=== PATIENT | female | born 1955 | race Caucasian/White ===

== ENCOUNTER 2023-05-04 06:23 | Inpatient (IN) | payer MEDICARE, OTHER, SELFPAY ==
--- NOTE | 2023-03-25 11:36 | CM ---
Patient is scheduled for an elective R THR on 05/04/23. Spoke with patient prior to surgery via telephone. Introduced role of Orthopedic Navigator. Patient reports that she lives alone in a one story condo. There is one step to enter. She currently
functions independently. She has a cane. She has had VN services in the past. PCP is Salma Linton.
Discussed orthopedic program and post surgical plans. Reviewed anticipated length of stay and that goal is for her to return home at discharge. Also reviewed outpatient PT. Patient is in agreement with tentative plan and will go directly to
outpatient PT at [facility]. Her son will stay with her at night and people will be stopping in during the day.
Patient will complete online education.
Plan: Orthopedic Navigator will remain available to assist with the care of patient and will reassess discharge needs after surgery.
[2023-04-13 13:37] VITALS: BMI 33.8
[2023-04-13 14:19] LABS: Hematocrit 39.2 % (37.0-47.0); Hemoglobin 12.8 g/dL (12.0-16.0); Mean Corp Hgb Conc. 32.7 g/dL (33.0-37.0); Mean Corpuscular Volume 91.8 fL (81.0-99.0); Mean Platelet Volume 10.3 fL (7.4-10.4); Platelet Count 227 10^3/uL (130-400); Red Blood Cell Count 4.27 10^6/uL (4.20-5.40); Red Cell Dist. Width 12.3 % (11.5-14.5); White Blood Cell Count 7.9 10^3/uL (4.8-10.8)
[2023-04-13 14:31] LABS: ALT (SGPT) 22 U/L (0-35); AST (SGOT) 26 U/L (14-36); Alkaline Phosphatase 85 U/L (38-126); Blood Urea Nitrogen 15 mg/dl (7-17); Calcium 9.4 mg/dl (8.4-10.2); Carbon Dioxide 28 mmol/L (22-30); Chloride 105 mmol/L (98-107); Estimated Creatinine Clearance 85 ml/min; Glucose 92 mg/dl (70-99); Sodium 138 mmol/L (135-145); Total Bilirubin 0.7 mg/dl (0.2-1.3); Total Protein 7.4 g/dl (6.3-8.2); eGFR > 60.00
[2023-04-13 15:51] VITALS: BMI 33.8
[2023-04-14 10:00] LABS: Glycohemoglobin (HgbA1c) 5.1 % (4.0-5.6)
[2023-05-04] VITALS (18 sets, daily range): BP systolic 91–137; BP diastolic 41–67; PULSE 67–74; O2SAT 99; BMI 33.8
[2023-05-04] MEDS: CELEBREX 200 MG PO (07:08)
[2023-05-04] MEDS: NORMOSOL-R 1000 IV ×2 (07:09→11:40)
[2023-05-04] MEDS: TYLENOL 650 MG PO ×5 (07:09→23:49)
[2023-05-04] MEDS: BACTROBAN NASAL 1 GRAM NASAL (07:11)
[2023-05-04] MEDS: SUBLIMAZE 50 MCG IV (10:25)
[2023-05-04] MEDS: ROXICODONE 5 MG PO (10:33)
[2023-05-04] MEDS: SUBLIMAZE 25 MCG IV ×2 (10:38→10:54)
[2023-05-04] MEDS: NEURONTIN 300 MG PO ×3 (11:35→20:15)
--- NOTE | 2023-05-04 12:13 | PTCARENOTE ---
Patient received from PACU stretcher; Surgical site assessed; IVF infusing; Patient oriented to room, call avery use; Bed in lowest position, wheels locked, call avery within reach; Safety maintained
[2023-05-04] MEDS: ANCEF 5 IV ×2 (15:27→23:53)
--- NOTE | 2023-05-04 18:43 | PTCARENOTE ---
Called to room by PCT who had gotten patient up to commode, as patient was on the commode they became dizzy and lightheaded; PCT able to get patient into bed safely; Patient found to be hypotensive, pale, dizzy, and lightheaded; Dr. Mcfadden and
Cassie Gregg PA-C made aware
[2023-05-04] MEDS: NORMOSOL-R 500 IV (19:09)
[2023-05-04] MEDS: ProAmatine 5 MG PO (19:12)
[2023-05-04] MEDS: DECADRON 4 MG PO (20:05)
[2023-05-04] MEDS: SENOKOT 17.1999999999999993 MG PO (20:05)
[2023-05-04] MEDS: ELIQUIS 2.5 MG PO (20:05)
[2023-05-04] MEDS: BACTROBAN 2% OINTMENT 1 APPLIC NASAL (20:05)
[2023-05-04] MEDS: COLACE 100 MG PO (20:05)
[2023-05-04] MEDS: PRED FORTE 1% EYE DROPS 1 DROP RIGHT EYE (20:06)
[2023-05-04] MEDS: XALATAN OPHTHALMIC SOLUTION 1 DROP RIGHT EYE (20:06)
[2023-05-05] VITALS (8 sets, daily range): BP systolic 84–137; BP diastolic 43–69; PULSE 70–86; O2SAT 98
[2023-05-05] MEDS: TYLENOL 650 MG PO ×4 (04:00→20:29)
[2023-05-05] MEDS: ProAmatine 5 MG PO (07:48)
[2023-05-05] MEDS: SENOKOT 17.1999999999999993 MG PO ×2 (07:49→20:32)
[2023-05-05] MEDS: COLACE 100 MG PO ×2 (07:49→20:31)
[2023-05-05] MEDS: DECADRON 4 MG PO ×2 (07:50→20:29)
[2023-05-05] MEDS: ELIQUIS 2.5 MG PO (07:50)
[2023-05-05] MEDS: BACTROBAN 2% OINTMENT 2 APPLIC NASAL (07:51)
--- NOTE | 2023-05-05 08:45 | CM ---
Reviewed chart and held rounds with PT, OT and nursing. Patient admitted as planned for elective R THR. Met with patient at bedside. Confirmed information previously obtained for assessment. Also discussed discharge plans. The plan is for patient to
return home at discharge. Her son will stay with her at night and friends will be available during the day. Patient will go directly to outpatient PT and will go to [facility]. She has an appointment scheduled for Thursday, 05/06.
Patient has a rolling walker, commode, shower seat, hip kit, firm cushion and cane.
She will use [facility] pharmacy for discharge prescriptions.
Discharge plans were reviewed with patient's friend on 05/04/23.
--- NOTE | 2023-05-05 10:19 | W.PN.ORTHO ---
Today's Communication / Plan
-
d/c
Assessment
.
Distal Motor Intact: Yes
Dressing:
Clean, dry and intact.
Assessment:
Orthostasis last pm-resolved s/p IVF and Midodrine
Hx PE b/l unprovoked 2020--Eliquis DVT ppx + SCD
Plan
.
Surgery / Date: O/A s/p R BANDAR Dr. Mcfadden 05/04/23
DVT Prophylaxis: Other (Eliquis-Rx provided by hematology +SCD)
Activity:
Out of bed.
PT/OT
Discharge Plan: Home w/ Outpatient PT
Subjective
.
.:
Patient resting comfortably.
Vital Signs and Labs
.
Vital Signs and Labs:
Lab Results
04/13/23 13:26
04/13/23 13:26
Temp Pulse Resp BP Pulse Ox
97.5 F 70 16 118/51 97
05/05/23 07:31 05/05/23 07:31 05/05/23 07:31 05/05/23 07:31 05/05/23 07:31
Physical Exam
-
HEENT: No pallor, cyanosis, or jaundice. Throat clear.
NECK: Supple. No JVD.
RESPIRATORY: Lungs clear to auscultation.
CVS: S1, S2 normal. RRR.� No murmur, rub or gallop.
ABDOMEN: Soft, non-tender. No distension. BS+/normal.
EXTREMITIES: strength equal, no calf pain with palpation
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 No focal deficits. roll scale worker grossly intact
--- NOTE | 2023-05-05 10:26 | W.DS.TRANS ---
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
-
Discharge Instructions:
Sleep Apnea Risk Low
Discharge Diagnosis/Procedures R BANDAR Dr. Mcfadden 05/04/23
Diet As tolerated
Activity With Walker
Additional Activity use venous compression device when sitting or
sleeping
Driving Restrictions No driving
Bathing Restrictions OK to Shower
Other Services PT
Stop these medications: NSAIDs while on Eliquis
Instructions:
Stand-Alone Forms: Total Hip/Knee Replacement D/C
Changes to Home Medications: Yes
Discharge Medications:
DC Medications w/original date entered in [employer]
latanoprost 0.005 % eye drops 1 drp RIGHT EYE HS Eye condition 03/25/21
prednisolone acetate 1 % eye drops,suspension 1 drp RIGHT EYE QID PRN Eye condition 03/25/21
albuterol sulfate 90 mcg/actuation aerosol inhaler (Proventil HFA) 1 puff inhalation Q4HPRN PRN shortness of breath ##1 04/06/21
mupirocin 2 % topical ointment 1 applic topical BID infection prevention #1 tube 04/13/23
acetaminophen 500 mg tablet 1,000 mg PO QID #0 tabs 05/05/23
apixaban 2.5 mg tablet (Eliquis) 2.5 mg PO BID DVT Prophylaxis #1 tab 05/05/23
dexamethasone 4 mg tablet 4 mg PO BID inflammation #6 tabs 05/05/23
docusate sodium 100 mg capsule (Colace) 100 mg PO BID stool softner #1 cap 05/05/23
famotidine 20 mg tablet 20 mg PO HS GI prophylaxis #30 tabs 05/05/23
gabapentin 300 mg capsule 300 mg PO HS sleep/pain #10 caps 05/05/23
magnesium hydroxide 400 mg/5 mL oral suspension (Milk of Magnesia) 30 ml PO HS PRN Constipation #1 mL 05/05/23
oxycodone 5 mg tablet 5 - 10 mg PO Q6HPRN PRN 1 tab moderate-2 tabs severe pain #30 tabs 05/05/23
sennosides 8.6 mg tablet (Senokot) 17.2 mg PO BID laxative #2 tabs 05/05/23
Home Medication Changes
apixaban 2.5 mg tablet (Eliquis) 2.5 mg PO BID DVT Prophylaxis #1 tab 05/05/23
dexamethasone 4 mg tablet 4 mg PO BID inflammation #6 tabs 05/05/23
famotidine 20 mg tablet 20 mg PO HS GI prophylaxis #30 tabs 05/05/23
gabapentin 300 mg capsule 300 mg PO HS sleep/pain #10 caps 05/05/23
xycodone 5 mg tablet 5 - 10 mg PO Q6HPRN PRN 1 tab moderate-2 tabs severe pain #30 tabs 05/05/23
Pending Results: No
[2023-05-05] MEDS: TYLENOL PO (13:07)
--- NOTE | 2023-05-05 15:19 | CON.PUL ---
Consultation
Consultation Request
Date/Time Consultation Requested: 05/05/2023 - 143
Date/Time Consultation Performed: 05/05/2023 - 150
Requesting Provider: Cassie Gregg PA-C
Performing Provider: Dr. Julian
Reason for Consultation: Acute PE
Medical History
-
Chief Complaint: Elective right total hip arthroplasty
History of Present Illness:
68-year-old female former tobacco smoker with a past medical history of PE (March 2021) on prophylactic Eliquis, anemia, glaucoma and former tobacco use disorder who presents with elective right total hip arthroplasty. Patient has been having
worsening right hip pain and she underwent right total hip arthroplasty by Dr. Mcfadden on 05/04/2023 with a EBL 50 mL and no immediate complications. She has been managed on the floor postoperatively. The patient was exhibiting recurrent
orthostasis with lightheadedness upon standing, and a CTA chest was ordered showing bilateral lower lobe pulmonary embolism with RV strain. Pulmonary now consulted for additional management/recommendations.
Of note, patient was seen by hematology as an outpatient and patient was cleared for her surgery yesterday and her Eliquis was being managed by them as well.
I spoke with the daughter and answered all her questions. 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
PMHx: Osteoarthritis, obesity, history of PE (March 2021) with resolution of PE since on CTA chest in apr 2021; anemia, glaucoma, former tobacco use disorder, GERD
PSHx: Cholecystectomy, appendectomy, cataract surgery, left total hip arthroplasty, right total knee arthroplasty ([facility]), right total knee arthroplasty revision ([facility])
Past Medical History
Past Medical History: Other (Above as per HPI)
Past Surgical History: Other (Above as per HPI)
Social History
Tobacco: Former Smoker
Alcohol: Occasional
Drug: None
Family History
Family History: Other (Son: DVT)
Allergies / Home Medications
Allergies
Allergy/AdvReac Type Severity Reaction Status Date / Time
No Known Allergies Allergy Verified 05/04/23 06:46
Home Medications
Medication Instructions Recorded Confirmed Last Taken Type
latanoprost 0.005 % eye drops 1 drp RIGHT EYE HS Eye condition 03/25/21 05/04/23 05/03/23 21:00 History
prednisolone acetate 1 % eye 1 drp RIGHT EYE QID PRN Eye 03/25/21 05/04/23 Unknown History
drops,suspension condition
albuterol sulfate 90 mcg/actuation 1 puff inhalation Q4HPRN PRN 04/06/21 05/04/23 Unknown Rx
aerosol inhaler (Proventil HFA) shortness of breath ##1
mupirocin 2 % topical ointment 1 applic topical BID infection 04/13/23 Unknown Rx
prevention #1 tube
acetaminophen 500 mg tablet 1,000 mg PO QID #0 tabs 05/05/23 05/04/23 05/02/23 Rx
apixaban 2.5 mg tablet (Eliquis) 2.5 mg PO BID DVT Prophylaxis #1 05/05/23 Unknown Rx
tab
dexamethasone 4 mg tablet 4 mg PO BID inflammation #6 tabs 05/05/23 Unknown Rx
docusate sodium 100 mg capsule 100 mg PO BID stool softner #1 cap 05/05/23 Unknown Rx
(Colace)
famotidine 20 mg tablet 20 mg PO HS GI prophylaxis #30 tabs 05/05/23 Unknown Rx
gabapentin 300 mg capsule 300 mg PO HS sleep/pain #10 caps 05/05/23 Unknown Rx
magnesium hydroxide 400 mg/5 mL 30 ml PO HS PRN Constipation #1 mL 05/05/23 Unknown Rx
oral suspension (Milk of Magnesia)
oxycodone 5 mg tablet 5 - 10 mg PO Q6HPRN PRN 1 tab 05/05/23 Unknown Rx
moderate-2 tabs severe pain #30
tabs
sennosides 8.6 mg tablet (Senokot) 17.2 mg PO BID laxative #2 tabs 05/05/23 Unknown Rx
Review of Systems
-
History Source: Patient
All other systems: Negative unless noted (12 point ROS performed and is negative unless mentioned above.)
Vitals / Labs / Diagnostic Testing
Vital Signs
Temp Pulse Resp BP Pulse Ox
98.4 F 85 18 129/67 97
05/05/23 11:58 05/05/23 14:18 05/05/23 14:18 05/05/23 14:18 05/05/23 14:18
Lab Data
04/13/23 13:26
04/13/23 13:26
Diagnostic Testing:
Physical Exam
-
HEENT: Normocephalic and Anicteric
Cardiovascular: S1/S2 and Peripheral Edema (n)
Respiratory: Clear, Wheeze (n) and Rales (n)
GI: Soft, Non Distended and Non Tender
Neurology: Awake and Alert
General: Comfortable
Assessment
-
Assessment: 68-year-old female former tobacco smoker with a past medical history of PE (March 2021) on prophylactic Eliquis, anemia, glaucoma and former tobacco use disorder who presents with elective right total hip arthroplasty. Patient has
been having worsening right hip pain and she underwent right total hip arthroplasty by Dr. Mcfadden on 05/04/2023 with a EBL 50 mL and no immediate complications. She has been managed on the floor postoperatively. The patient was exhibiting
recurrent orthostasis with lightheadedness upon standing, and a CTA chest was ordered showing bilateral lower lobe pulmonary embolism with RV strain. Pulmonary now consulted for additional management/recommendations.
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
Impression:
#Submassive PE with RV strain high risk features
#Hx of PE (03/2021)
#Right hip pain s/p right BANDAR (POD#1)
#Hx of GERD
#Hx of anemia
#Obesity
Plan:
- Systemic AC - pt already on Eliquis but will start heparin gtt for now given patient's fresh right total hip arthroplasty
- Check stat labs including coagulation testing, CBC, troponin, and BNP
- Check LE duplex
- Check TTE
- Maintain SpO2 >94%
- Keep BG >100 and <180
- MAP>65
- Monitor for sudden drop in SBP by >15-20% or sudden tachycardia >120-130bpm as this could mean the PE is acutely worsening with development of obstructive shock
- currently there is no signs of shock and her pulmonary artery is <30mm on the CTA chest - hence continuing care on telemetry is appropriate
- DC eliquis and we can resume a NOAC after pt is on parenteral AC for 48 hrs --> question of failed eliquis so she may need to go onto coumadin or a different blood thinner. Perhaps she was simply under-dosed and should have been on 5mg BID. It is
unclear. I will defer to hematology for this decision regarding which anticoagulation she should be discharged home on.
- DVT ppx - heparin gtt being started
Pulmonary service will continue to follow along.
Data:
CTA Chest 05-05-2023:
There is right lower lobe pulmonary embolism
There is right heart strain with an RV/LV ratio of 1.35
CTA Chest 03-25-2021:
1. � ACUTE PULMONARY ARTERIAL EMBOLIC DISEASE in both lungs.
2. � Mild pulmonary arterial hypertension.
3. � No CTA evidence for right heart strain.
4. � Mild subpleural airspace consolidation in the right lower lobe which could be (1) acute pulmonary infarct, (2) pneumonia, or (3) subsegmental atelectasis.
5. � Small right pleural effusion.
6. � 2.1 mm right upper lobe pulmonary nodule. If the patient is considered high risk, a follow-up chest CT examination in 12 months is recommended.
7. � Small hiatal hernia.
TTE 04-15-2023:
�Normal left ventricular size, wall thickness and systolic function.� No
�regional wall motion abnormalities are seen. Estimated ejection fraction is 55-
�60%. Normal diastolic function.
�Mild aortic regurgitation.
�When compared to prior echocardiogram from March 26, 2021 there is no
�significant change
[2023-05-05 16:15] LABS: % Basophils 0.1 % (0-2); % Immature Granulocytes 0.4 % (0-0.5); % Lymphocytes 5.1 % (20.5-51.1); % Monocytes 5.1 % (1.7-9.3); % Neutrophils 89.3 % (42.2-75.2); Absolute Immature Granulocytes 0.1 10^3/uL (0-0.05); Absolute Lymphocytes 0.7 10^3/uL (1.2-3.4); Absolute Monocytes 0.7 10^3/uL (0.1-0.6); Absolute Neutrophils 12.5 10^3/uL (1.4-6.5); Hematocrit 29.7 % (37.0-47.0); Mean Corp Hgb Conc. 33.7 g/dL (33.0-37.0); Mean Corpuscular Hgb 29.9 pg (27.0-31.0); Mean Corpuscular Volume 88.9 fL (81.0-99.0); Mean Platelet Volume 10.5 fL (7.4-10.4); Nucleated Red Blood Cells % 0 %; Platelet Count 191 10^3/uL (130-400); Red Blood Cell Count 3.34 10^6/uL (4.20-5.40); Red Cell Dist. Width 12.6 % (11.5-14.5)
[2023-05-05 16:26] LABS: APTT 27.6 Sec (23.4-35.0)
[2023-05-05 16:29] LABS: Lactic Acid 2.6 mmol/L (0.7-2.0)
[2023-05-05 16:30] LABS: ALT (SGPT) 29 U/L (0-35); AST (SGOT) 53 U/L (14-36); Albumin 3.4 g/dl (3.5-5.0); Alkaline Phosphatase 67 U/L (38-126); Blood Urea Nitrogen 11 mg/dl (7-17); Calcium 8.8 mg/dl (8.4-10.2); Carbon Dioxide 27 mmol/L (22-30); Chloride 109 mmol/L (98-107); Estimated Creatinine Clearance 98 ml/min; Glucose 136 mg/dl (70-99); Magnesium 2.3 mg/dl (1.6-2.3); Phosphorus 2.4 mg/dl (2.5-4.5); Potassium 4.1 mmol/L (3.5-5.1); Sodium 138 mmol/L (135-145); Total Bilirubin 0.4 mg/dl (0.2-1.3); Total Protein 6.3 g/dl (6.3-8.2); eGFR > 60.00
--- NOTE | 2023-05-05 16:38 | W.PN.UPDATE ---
Update Note
Progress Note Update
Appreciate input from Dr. Julian pulmonary. Patient had a history of bilateral pulmonary emboli which was unprovoked in 2020. Preoperatively, patient was seen by hematology and Eliquis 2.5 mg p.o. twice daily was recommended and begun last
night. Unfortunately, patient has developed a new pulmonary embolism post surgery while on low dose Eliquis. Patient is not short of breath and denies chest pain. Her primary symptoms were orthostasis. Right hip wound at this time has minimal
bloody strikethrough on the Aquacel dressing. Future anticoagulation to be ordered by pulmonary. Also, patient may need genetic testing and/or long-term anticoagulation. Unfortunately, Eliquis may not be the best choice due to financial concerns
and cost.
[2023-05-05] MEDS: HEPARIN 25000 UNITS/250 ML IV (16:53)
[2023-05-05] MEDS: BACTROBAN 2% OINTMENT 1 APPLIC NASAL (20:26)
[2023-05-05] MEDS: NEURONTIN 300 MG PO (20:32)
[2023-05-05] MEDS: XALATAN OPHTHALMIC SOLUTION 1 DROP RIGHT EYE (20:33)
[2023-05-05 23:39] LABS: APTT > 200 Sec (23.4-35.0)
--- NOTE | 2023-05-05 23:47 | PTCARENOTE ---
Ptt result >200. Milton Rebollar aware. Will follow protocol, heparin gtt currently on hold for 2 hours then will resume @ 1300 units.
[2023-05-06] MEDS: TYLENOL PO ×3 (01:11→12:02)
[2023-05-06 07:11] VITALS: BP 134/63
[2023-05-06 07:55] LABS: APTT 97.7 Sec (23.4-35.0)
--- NOTE | 2023-05-06 07:58 | CM ---
Reviewed chart and discussed with SHERYL Hatch. Patient is post op day 2 following R THR. She was found to have a PE yesterday. Met with patient at bedside. Discussed discharge plans. The plan continues to be for patient to return home at
discharge. Her son will stay with her at night and friends will be available during the day. Patient will go directly to outpatient PT and will go to [facility]. She canceled her appointment which was scheduled for Thursday, 05/06 and will reschedule
once discharge date is known.
Patient has a rolling walker, commode, shower seat, hip kit, firm cushion and cane.
[facility].
[2023-05-06] MEDS: DECADRON 4 MG PO ×2 (08:19→19:56)
[2023-05-06] MEDS: SENOKOT PO ×2 (08:20→19:56)
[2023-05-06] MEDS: TYLENOL 650 MG PO ×3 (08:20→19:56)
[2023-05-06] MEDS: COLACE PO ×2 (08:20→19:56)
--- NOTE | 2023-05-06 09:51 | W.PN.ORTHO ---
Today's Communication / Plan
-
d/c when stable
Assessment
.
Distal Motor Intact: Yes
Dressing:
Clean, dry and intact.
Assessment:
Hx bilateral PE 2020--unprovoked
Recurrent orthostasis POD#1 despite IVF bolus and Midodrine--CT PE Chest was ordered which did show small right PE-? RV strain, however echo grossly normal--currently on Heparin gtts--Patient has had no symptoms with the exception of hypotension
which is now resolved, HR and O2 sats stable--venous duplex pending--if this study is negative, will consider option of Eliquis 5mg bid dosing beginning POD#3-she will remain on drip overnight until tomorrow--will consult and review with hematology
per pulmonary request
Plan
.
Surgery / Date: O/A s/p R BANDAR Dr. Mcfadden 05/04/23
DVT Prophylaxis: Heparin
Activity:
Out of bed.
PT/OT
Subjective
.
.:
Patient resting comfortably.
Vital Signs and Labs
.
Vital Signs and Labs:
Lab Results
05/05/23 16:02
05/05/23 16:02
Temp Pulse Resp BP Pulse Ox
98.1 F 66 14 134/63 96
05/06/23 07:11 05/06/23 07:11 05/06/23 07:11 05/06/23 07:11 05/06/23 07:11
Physical Exam
-
HEENT: No pallor, cyanosis, or jaundice. Throat clear.
NECK: Supple. No JVD.
RESPIRATORY: Lungs clear to auscultation.
CVS: S1, S2 normal. RRR.� No murmur, rub or gallop.
ABDOMEN: Soft, non-tender. No distension. BS+/normal.
EXTREMITIES: strength equal, no calf pain with palpation
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 No focal deficits. chief maintenance supervisor grossly intact
--- NOTE | 2023-05-06 11:38 | W.PN.PUL3 ---
Addendum entered and electronically signed by Rubén Julian MD 05/12/23 02:03:
[facility] Response:
Pulmonary embolus with right ventricular heart strain, suspected to be POA
Original Note:
Today's Communication / Plan
-
Systemic AC
Transition to long-term AC as per hematology with outpatient hypercoagulable workup
PT/OT
Trend lactate
I will arrange for outpatient follow-up with me with PFTs to assess diffusion capacity
Assessment
-
Assessment: 68-year-old female former tobacco smoker with a past medical history of PE (March 2021) on prophylactic Eliquis, anemia, glaucoma and former tobacco use disorder who presents with elective right total hip arthroplasty. Patient has
been having worsening right hip pain and she underwent right total hip arthroplasty by Dr. Mcfadden on 05/04/2023 with a EBL 50 mL and no immediate complications. She has been managed on the floor postoperatively. The patient was exhibiting
recurrent orthostasis with lightheadedness upon standing, and a CTA chest was ordered showing bilateral lower lobe pulmonary embolism with RV strain. Pulmonary now consulted for additional management/recommendations.
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
Impression:
#Submassive PE with RV strain & high risk features
#lactic acidosis - due to above
#Hx of PE (03/2021)
#Right hip pain s/p right BANDAR (POD#2)
#Hx of GERD
#Hx of anemia
#Obesity
Plan:
- Systemic AC - currently on heparin gtt. Would defer final oral AC therapy to hematology as I question if she failed Eliquis and should be on coumadin or perhaps the prophylactic dose was insufficient
- She may also have an underlying hypercoagulable/prothrombotic state that is raising her propensity to form clots
- Given her recent right BANDAR, continue heparin gtt for 48 hrs and then can transition to a NOAC or coumadin tomorrow - I will defer to hematology in terms of which AC to transition patient to
- I suspect patient had this PE pre-operatively as she told me she has been having occasional SOB last few weeks, but she is not the best historian in regards to her SOB history. She did have a 'cold' last month with SOB, but then her SOB recovered
afterwards. --> she will likely be ion life-long anticoagulation considering this is her 2nd PE and appears to be unprovoked. Hypercoagulable workup per heme
- Check troponin and BNP -> trop negative and BNP elevated, as expected given RV strain seen on initial CTA chest
- Check LE duplex
- trend lactate to ensure it comes down <2mmol/L - can check again tomorrow AM
- Maintain SpO2 >94%
- Keep BG >100 and <180
- MAP>65
- Monitor for sudden drop in SBP by >15-20% or sudden tachycardia >120-130bpm as this could mean the PE is acutely worsening with development of obstructive shock
- currently there is no signs of shock and her pulmonary artery is <30mm on the CTA chest - hence continuing care on telemetry is appropriate
- DVT ppx - heparin gtt
Pulmonary service will continue to follow along.
Data:
CTA Chest 05-05-2023:
There is right lower lobe pulmonary embolism
There is right heart strain with an RV/LV ratio of 1.35
CTA Chest 03-25-2021:
1. � ACUTE PULMONARY ARTERIAL EMBOLIC DISEASE in both lungs.
2. � Mild pulmonary arterial hypertension.
3. � No CTA evidence for right heart strain.
4. � Mild subpleural airspace consolidation in the right lower lobe which could be (1) acute pulmonary infarct, (2) pneumonia, or (3) subsegmental atelectasis.
5. � Small right pleural effusion.
6. � 2.1 mm right upper lobe pulmonary nodule. If the patient is considered high risk, a follow-up chest CT examination in 12 months is recommended.
7. � Small hiatal hernia.
TTE 05-05-2023:
1.� Technically difficult study.
�2.� Normal left ventricular size and hyperdynamic LV systolic function without
�regional wall motion abnormalities.� Estimated left ventricular ejection
�fraction is 65 to 70% by visual estimation.� Mild concentric left ventricular
�hypertrophy.
�3.� RV is not well-visualized but grossly normal size and systolic function.
�4.� No significant valvular abnormalities.
�5.� No pericardial effusion.
TTE 04-15-2023:
�Normal left ventricular size, wall thickness and systolic function.� No
�regional wall motion abnormalities are seen. Estimated ejection fraction is 55-
�60%. Normal diastolic function.
�Mild aortic regurgitation.
�When compared to prior echocardiogram from March 26, 2021 there is no
�significant change
Subjective Data
-
Date of Service:
Date of Service: May 06, 2023
Chief Complaint: Pulmonary Follow Up
Subjective:
Patient seen this morning. Patient's friend at bedside. She is on room air and denies shortness of breath. Still feels 'woozy' upon standing and walking. No pain reported in her chest.
Review of Systems
General: Other (Negative unless mentioned above)
Objective Data
Data Reviewed
Vital Signs / I&O / Oxygen:
Vital Signs
Temp Pulse Resp BP Pulse Ox
98.1 F 66 14 134/63 96
05/06/23 07:11 05/06/23 07:11 05/06/23 07:11 05/06/23 07:11 05/06/23 07:11
Intake and Output
05/05/23 05/06/23 05/07/23
06:59 06:59 06:59
Intake Total 1530 / 1530 900 / 900
Output Total 350 / 350
Balance 1530 / 1530 550 / 550
SaO2 96
Nasal Cannula flow liters per 2
minute
Physical Exam
General: Comfortable
HEENT: Normocephalic and Anicteric
Cardiovascular: S1-S2 and Peripheral Edema (neg)
Respiratory: Clear, Wheeze (neg), Crackles (neg), Rhonchi (neg) and Non-Labored Respirations
GI: Soft, Non Distended, Non Tender and Normal Bowel Sounds
Neurology: AO x 3 and Tremors (neg)
Skin: Warm, Dry and Other (cast/immobilizer on RLE)
Labs/Micro/Reports
Lab Data
05/05/23 16:02
05/05/23 16:02
Laboratory Results
05/05/23 05/05/23 05/06/23
16:02 22:59 07:34
APTT 27.6 > 200 H* 97.7 H
05/06/23
13:40
APTT 88.7 H
[2023-05-06] MEDS: HEPARIN 25000 UNITS/250 ML IV (12:06)
[2023-05-06 14:15] LABS: APTT 88.7 Sec (23.4-35.0)
[2023-05-06 14:23] LABS: NT-proBNP 824 pg/ml; Troponin I < 0.012 ng/ml
[2023-05-06] MEDS: ROXICODONE 5 MG PO (15:56)
[2023-05-06 16:20] VITALS: BP 124/49; BP 125/51; PULSE 66; O2SAT 97
[2023-05-06 16:45] VITALS: BP 124/49; BP 125/51; PULSE 66; O2SAT 97
[2023-05-06 16:58] VITALS: BP 124/49
[2023-05-06] MEDS: NEURONTIN 300 MG PO (21:51)
[2023-05-06] MEDS: XALATAN OPHTHALMIC SOLUTION 1 DROP RIGHT EYE (21:51)
[2023-05-06 23:00] VITALS: BP 144/63
[2023-05-07] MEDS: TYLENOL PO ×2 (00:04→05:02)
[2023-05-07] MEDS: TYLENOL 650 MG PO ×3 (05:39→12:32)
[2023-05-07 05:46] LABS: Hematocrit 30.3 % (37.0-47.0); Hemoglobin 10.3 g/dL (12.0-16.0); Mean Corpuscular Hgb 30.3 pg (27.0-31.0); Mean Corpuscular Volume 89.1 fL (81.0-99.0); Mean Platelet Volume 10.6 fL (7.4-10.4); Platelet Count 187 10^3/uL (130-400); Red Cell Dist. Width 12.9 % (11.5-14.5); White Blood Cell Count 10.7 10^3/uL (4.8-10.8)
[2023-05-07 05:56] LABS: Lactic Acid 0.7 mmol/L (0.7-2.0)
--- NOTE | 2023-05-07 08:34 | CON.ONC ---
Addendum entered and electronically signed by Demarcus Tang DO 05/07/23 14:08:
Patient was examined independently and chart reviewed. Patient was seen preoperatively for hematologic clearance. She completed anticoagulation therapy for a previous pulmonary embolus that was unprovoked. Never previously evaluated for
thrombophilia with strong family history. Will evaluate baseline D-dimer. Suspect current finding is subacute and may have occurred in February. She remembers an incidence of shortness of breath which was atypical while visiting [facility].
She will require hematology follow-up. Assess for APL. Additional workup as an outpatient agree with no loading given recent surgery. Apixaban 5 mg twice daily
Original Note:
Impression
Impression
s/p right hip arthroplasty 05/04/23
Acute RLL PE post operatively despite prophylactic Eliquis
Hx unprovoked PE (2020)
Orthostasis/dizziness
Plan
Plan
05/04 POD#3 right hip arthroplasty with Dr. Mcfadden; EBL 50
05/[address]: Right lower lobe pulmonary embolism. There is right heart strain with an RV/LV ratio of 1.35
05/06 B/l PV US: No findings to confirm deep venous thrombosis of the lower extremities bilaterally.
05/07 Hgb 10.3, Hct 30.3, MCV 89.1, PLT 187
Baseline Hgb 11-14 per history
Transfuse as needed to maintain Hgb >7, PLT >20
APS panel and additional lab work ordered
Pain management, supportive care, PT/OT
Ensure outpatient health screenings are up to date: colonoscopy, mammogram
Heparin gtt discontinued
Recommend transition to Eliquis 5mg PO BID
Case management following
If APS panel is positive - patient will require Warfarin - she verbalizes understanding
Patient will need outpatient follow up with [facility] for further hypercoagulable workup and management of lifelong anticoagulation. Our office has been notified of scheduling needs and will contact patient upon discharge. Discharge planning to [facility].
Patient History
History of Present Illness
Giana Jim is a 68 year old female known to Dr. Green with [facility] for history of unprovoked PE in 2020. She was last seen in our office on 04/09/23 for medical clearance for orthopedic surgery. It was recommended that she take Eliquis 2.5mg
BID 12-24 hours post-op x35 days as prophylaxis. She is s/p right total hip arthroplasty 05/04/[address] Mcfadden. EBL minimal. She exhibited orthostasis and lightheadedness upon standing post-operatively. CTA chest was ordered and revealed RLL PE
with RV strain. This developed despite prophylactic Eliquis. She was started on heparin gtt.
Past-Medical/Surgical History
Osteoarthritis of b/l hip
Left total hip arthroplasty
Unprovoked PE (2020)
Obesity (BMI 33.8)
Remote tobacco use
B/l total knee arthroplasty
GERD
Hypertension
Anemia
Glaucoma
Appendectomy
Cholecystectomy
Cataract removal
Patient Medication
Medication Instructions Recorded Confirmed Last Taken Type
latanoprost 0.005 % eye drops 1 drp RIGHT EYE HS Eye condition 03/25/21 05/04/23 05/03/23 21:00 History
prednisolone acetate 1 % eye 1 drp RIGHT EYE QID PRN Eye 03/25/21 05/04/23 Unknown History
drops,suspension condition
albuterol sulfate 90 mcg/actuation 1 puff inhalation Q4HPRN PRN 04/06/21 05/04/23 Unknown Rx
aerosol inhaler (Proventil HFA) shortness of breath ##1
mupirocin 2 % topical ointment 1 applic topical BID infection 04/13/23 Unknown Rx
prevention #1 tube
acetaminophen 500 mg tablet 1,000 mg PO QID #0 tabs 05/05/23 05/04/23 05/02/23 Rx
apixaban 2.5 mg tablet (Eliquis) 2.5 mg PO BID DVT Prophylaxis #1 05/05/23 Unknown Rx
tab
dexamethasone 4 mg tablet 4 mg PO BID inflammation #6 tabs 05/05/23 Unknown Rx
docusate sodium 100 mg capsule 100 mg PO BID stool softner #1 cap 05/05/23 Unknown Rx
(Colace)
famotidine 20 mg tablet 20 mg PO HS GI prophylaxis #30 tabs 05/05/23 Unknown Rx
gabapentin 300 mg capsule 300 mg PO HS sleep/pain #10 caps 05/05/23 Unknown Rx
magnesium hydroxide 400 mg/5 mL 30 ml PO HS PRN Constipation #1 mL 05/05/23 Unknown Rx
oral suspension (Milk of Magnesia)
oxycodone 5 mg tablet 5 - 10 mg PO Q6HPRN PRN 1 tab 05/05/23 Unknown Rx
moderate-2 tabs severe pain #30
tabs
sennosides 8.6 mg tablet (Senokot) 17.2 mg PO BID laxative #2 tabs 05/05/23 Unknown Rx
Active Medications
Generic Name Dose Route Start Last Admin
Trade Name Freq PRN Reason Stop Dose Admin
Acetaminophen 650 mg 05/04/23 12:00 05/07/23 05:39
Acetaminophen 325 Mg Tablet PO 06/01/23 11:59 650 mg
Q4HWA MANDEEP Administration
Al Hydrox/Mg Hydrox/Simethicone 30 ml 05/04/23 06:27
Mag/Al/Simethicone Suspension 30 Ml Cup PO 06/01/23 06:26
Q4HPRN PRN
INDIGESTION
Albuterol 1 puff 05/04/23 06:25
Albuterol Hfa [90 Mcg/Dose] Inhaler INH 06/01/23 06:24
R Q4HPRN PRN
shortness of breath
Protocol
Docusate Sodium 100 mg 05/04/23 20:00 05/06/23 19:56
Docusate Sodium 100 Mg Capsule PO 06/01/23 19:59 Not Given
BID MANDEEP
Gabapentin 300 mg 05/04/23 22:00 05/06/23 21:51
Gabapentin 300 Mg Capsule PO 06/01/23 21:59 300 mg
HS MANDEEP Administration
Latanoprost 1 drop 05/04/23 22:00 05/06/23 21:51
Latanoprost 0.005% (Ophthalmic Solution) 2.5 Ml Bottle RIGHT EYE 06/01/23 21:59 1 drop
HS MANDEEP Administration
Magnesium Hydroxide 30 ml 05/04/23 06:27
Milk Of Magnesia 30 Ml Cup PO 06/01/23 06:26
DAILYPRN PRN
constipation
Ondansetron HCl 4 mg 05/04/23 06:27
Ondansetron 4 Mg/2 Ml Vial IV 06/01/23 06:26
Q6HPRN PRN
NAUSEA
Oxycodone HCl 5 mg 05/06/23 08:58 05/06/23 15:56
Oxycodone 5 Mg Regular Release Tablet PO 05/20/23 08:57 5 mg
Q4HPRN PRN Administration
moderate pain
Oxycodone HCl 10 mg 05/06/23 08:58
Oxycodone 10 Mg Regular Release Tablet PO 05/20/23 08:57
Q4HPRN PRN
severe pain
Prednisolone Acetate 1 drop 05/04/23 06:25 05/04/23 20:06
Prednisolone 1% (Ophthalmic Suspension) Bottle RIGHT EYE 06/01/23 06:24 1 drop
QID PRN Administration
Eye condition
Prochlorperazine Maleate 5 mg 05/04/23 06:27
Prochlorperazine 5 Mg Tablet PO 06/01/23 06:26
Q6HPRN PRN
nausea/vomiting
Sennosides 17.2 mg 05/04/23 20:00 05/06/23 19:56
Sennosides (Senokot) 8.6 Mg Tablet PO 06/01/23 19:59 Not Given
BID MANDEEP
Sodium Chloride 0 flush 05/04/23 06:00
Sodium Chloride 0.9% (Flush) Syringe IV 06/01/23 05:59
PER PROTOCOL MANDEEP
Tamsulosin HCl 0.4 mg 05/04/23 06:27
Tamsulosin 0.4 Mg Capsule PO 06/01/23 06:26
DAILYPRN PRN
bladder scan volume > 400 mL
Review of Systems
-
History Source: Patient and Records
Constitutional: Reports No Symptoms
EENT: Reports No Symptoms
Respiratory: Reports No Symptoms
Cardiac: Reports No Symptoms
GI: Reports No Symptoms
Breast: Reports N/A
: Reports No Symptoms
Musculoskeletal: Reports Muscle Pain
Skin: Reports No Symptoms
Neuro: Reports Dizzy and Lightheadedness
Endocrine: Reports No Symptoms
Hematologic/Lymphatic: Reports No Symptoms
Allergy / Immunology: Reports No Symptoms
Psych: Reports No Symptoms
Physical Exam
-
Patient is resting comfortably in bed. She reports intermittent dizziness/lightheadedness. BP has improved. She states she just received pain medication in anticipation for physical therapy. She feels the narcotics could be contributing to her
dizziness. She feels well overall and is eager for dc. She notes she has a strong support system of family and friends at home to help her in her post-op recovery.
General: Well Developed, Well Nourished, No Apparent Distress, Comfortable and Conversant; Negative Pain, Fever or Chills
HEENT: Negative Jaundice
Cardiology: Normal Sinus Rhythm
Pulmonary: Clear
GI: Normal Bowel Sounds
Musculoskeletal: Edema, Right Lower Extrem
Extremities: Pulses Present
Neurology: Non Focal
Skin: Warm, Dry and Other (aquacell dressing to right hip, CDI, old drainage.)
Hematologic / Lymphatic: No Petechiae
Psych: Calm
Labs
Lab Results
WBC 10.7 10^3/uL (4.8-10.8) 05/07/23 05:31
RBC 3.40 10^6/uL (4.20-5.40) L 05/07/23 05:31
Hgb 10.3 g/dL (12.0-16.0) L 05/07/23 05:
Hct 30.3 % (37.0-47.0) L 05/07/23 05:
MCV 89.1 fL (81.0-99.0) 05/07/23 05:
MCH 30.3 pg (27.0-31.0) 05/07/23 05:
MCHC 34.0 g/dL (33.0-37.0) 05/07/23 05:
RDW 12.9 % (11.5-14.5) 05/07/23 05:31
Plt Count 187 10^3/uL (130-400) 05/07/23 05:31
MPV 10.6 fL (7.4-10.4) H 05/07/23 05:31
Abs Immat Gran (auto) 0.1 10^3/uL (0-0.05) H 05/05/23 16:02
Absolute Neuts (auto) 12.5 10^3/uL (1.4-6.5) H 05/05/23 16:02
Absolute Lymphs (auto) 0.7 10^3/uL (1.2-3.4) L 05/05/23 16:02
Absolute Monos (auto) 0.7 10^3/uL (0.1-0.6) H 05/05/23 16:02
Absolute Eos (auto) 0.0 10^3/uL (0-0.7) 05/05/23 16:02
Absolute Basos (auto) 0.0 10^3/uL (0-0.2) 05/05/23 16:02
Immature Gran % 0.4 % (0-0.5) 05/05/23 16:02
Neutrophils % 89.3 % (42.2-75.2) H 05/05/23 16:02
Lymphocytes % 5.1 % (20.5-51.1) L 05/05/23 16:02
Monocytes % 5.1 % (1.7-9.3) 05/05/23 16:02
Eosinophils % 0.0 % (0-6) 05/05/23 16:02
Basophils % 0.1 % (0-2) 05/05/23 16:02
Creatinine 0.4 mg/dL (0.6-1.0) L 05/05/23 16:02
Vital Signs
Vital Signs
Temp Pulse Resp BP Pulse Ox
98.4 F 67 16 144/63 96
05/06/23 23:00 05/06/23 23:00 05/06/23 23:00 05/06/23 23:00 05/06/23 23:00
--- NOTE | 2023-05-07 08:37 | CM ---
Addendum entered by Liz Sandoval 05/07/23 12:44:
Patient has been cleared for discharge. She scheduled an appointment at [facility] for Thursday, 05/09.
Original Note:
Reviewed chart and held rounds with PT, OT and nursing. Patient is post op day 3 following R THR. Hematology consult is pending. Met with patient at bedside. Discussed discharge plans. The plan continues to be for patient to return home at
discharge. Her son will stay with her at night and friends will be available during the day. Patient will go directly to outpatient PT and will go to [facility]. She will call [facility] to reschedule her appointment once discharge date is known.
Patient has a rolling walker, commode, shower seat, hip kit, firm cushion and cane.
She will use [facility] for discharge prescriptions.
[2023-05-07 08:43] VITALS: BP 133/54
[2023-05-07] MEDS: COLACE PO (08:58)
[2023-05-07] MEDS: SENOKOT PO (08:58)
[2023-05-07] MEDS: DECADRON 4 MG PO (08:59)
[2023-05-07] MEDS: ROXICODONE 5 MG PO (09:03)
--- NOTE | 2023-05-07 11:09 | PN.CDI ---
CDI
- -
CDI:
Physician Documentation Request
Admit Date: 05/04/23 06:23
Dear Doctor Eliel,
Please review the following and provide your response in the progress notes.
Clinical Indicators:
Ortho PN, 05/06
#Hx bilateral PE 2020--unprovoked
PN, 05/06
#Submassive PE with RV strain & high risk features
#...- I suspect patient had this PE pre-operatively
#...as she told me she has been having occasional SOB last few weeks,
#...but she is not the best historian in regards to her SOB history.
#...considering this is her 2nd PE and appears to be unprovoked.
Based on the above and your clinical assessment, please clarify acuity and preop status of Pulmonary Embolus.....:
Pulmonary embolus with acute cor pulmonale, POA
Pulmonary embolus with acute on chronic cor pulmonale
Pulmonary embolus with right ventricular heart strain only
Other
Use of terms such as suspected, likely, concern for, or probable (associated with a specific diagnosis that is being evaluated, monitored, or treated as if it exists) are acceptable and can be coded in the inpatient setting, when documented at the
time of discharge.
Thank you,
Paulette Colón RN BSN CCDS
CDI Specialist
please contact via tiger text
Please use your independent medical judgment in providing your response.
[2023-05-07 12:19] VITALS: BP 123/44; BP 126/51; PULSE 65
--- NOTE | 2023-05-07 12:21 | W.PN.ORTHO ---
Today's Communication / Plan
-
d/c
Assessment
.
Distal Motor Intact: Yes
Dressing:
Clean, dry and intact.
Assessment:
Hx bilateral PE 2020--unprovoked
Recurrent orthostasis POD#1 despite IVF bolus and Midodrine--CT PE Chest was ordered which did show small right PE-? RV strain, however echo grossly normal----Patient has had no symptoms with the exception of hypotension which is now resolved and
likely related to anesthesia/opioid, HR and O2 sats stable--venous duplex b/l negative for clot--Eliquis 5mg bid dosing beginning POD#3-she is s/p Heparin gtts
--Pulmonary and Heme appreciated-plan discussed and in agreement with OP f/u
Plan
.
Surgery / Date: O/A s/p R BANDAR Dr. Mcfadden 05/04/23
DVT Prophylaxis: Other (Eliquis 5mg bid-samples provided-Rx sent)
Activity:
Out of bed.
PT/OT
Discharge Plan: Home w/ Outpatient PT
Subjective
.
.:
Patient resting comfortably.
Vital Signs and Labs
.
Vital Signs and Labs:
Lab Results
05/07/23 05:31
05/05/23 16:02
Temp Pulse Resp BP Pulse Ox
98.0 F 64 18 133/54 97
05/07/23 08:43 05/07/23 08:43 05/07/23 08:43 05/07/23 08:43 05/07/23 08:43
Physical Exam
-
HEENT: No pallor, cyanosis, or jaundice. Throat clear.
NECK: Supple. No JVD.
CVS: S1, S2 normal. RRR.� No murmur, rub or gallop.
ABDOMEN: Soft, non-tender. No distension. BS+/normal.
EXTREMITIES: strength equal, no calf pain with palpation
HEAD MILLER: AOx3. No focal deficits. microfilm processor grossly intact
--- NOTE | 2023-05-07 12:29 | W.DS.TRANS ---
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
-
Discharge Instructions:
Sleep Apnea Risk Low
Discharge Diagnosis/Procedures R BANDAR Dr. Mcfadden 05/04/23
Diet As tolerated
Activity With Walker
Additional Activity use venous compression device when sitting or
sleeping
Driving Restrictions No driving
Bathing Restrictions OK to Shower
Other Services PT
Stop these medications: NSAIDs while on Eliquis
Instructions:
Stand-Alone Forms: Total Hip/Knee Replacement D/C
Changes to Home Medications: Yes
Discharge Medications:
DC Medications w/original date entered in [employer]
latanoprost 0.005 % eye drops 1 drp RIGHT EYE HS Eye condition 03/25/21
prednisolone acetate 1 % eye drops,suspension 1 drp RIGHT EYE QID PRN Eye condition 03/25/21
albuterol sulfate 90 mcg/actuation aerosol inhaler (Proventil HFA) 1 puff inhalation Q4HPRN PRN shortness of breath ##1 04/06/21
mupirocin 2 % topical ointment 1 applic topical BID infection prevention #1 tube 04/13/23
acetaminophen 500 mg tablet 1,000 mg PO QID #0 tabs 05/05/23
dexamethasone 4 mg tablet 4 mg PO BID inflammation #6 tabs 05/05/23
docusate sodium 100 mg capsule (Colace) 100 mg PO BID stool softner #1 cap 05/05/23
famotidine 20 mg tablet 20 mg PO HS GI prophylaxis #30 tabs 05/05/23
gabapentin 300 mg capsule 300 mg PO HS sleep/pain #10 caps 05/05/23
magnesium hydroxide 400 mg/5 mL oral suspension (Milk of Magnesia) 30 ml PO HS PRN Constipation #1 mL 05/05/23
oxycodone 5 mg tablet 5 - 10 mg PO Q6HPRN PRN 1 tab moderate-2 tabs severe pain #30 tabs 05/05/23
sennosides 8.6 mg tablet (Senokot) 17.2 mg PO BID laxative #2 tabs 05/05/23
apixaban 5 mg tablet (Eliquis) 5 mg PO BID PE #60 tabs 05/07/23
Home Medication Changes
dexamethasone 4 mg tablet 4 mg PO BID inflammation #6 tabs 05/05/23
famotidine 20 mg tablet 20 mg PO HS GI prophylaxis #30 tabs 05/05/23
gabapentin 300 mg capsule 300 mg PO HS sleep/pain #10 caps 05/05/23
oxycodone 5 mg tablet 5 - 10 mg PO Q6HPRN PRN 1 tab moderate-2 tabs severe pain #30 tabs 05/05/23
apixaban 5 mg tablet (Eliquis) 5 mg PO BID PE #60 tabs 05/07/23
Pending Results: No
[2023-05-07] MEDS: ELIQUIS 5 MG PO (12:33)
[2023-05-07 12:47] LABS: INR 1.04; PT 13.6 Sec (11.4-14.6)
[2023-05-07 13:41] VITALS: BP 137/53; PULSE 62; O2SAT 99
--- NOTE | 2023-05-07 14:02 | W.PN.PUL3 ---
Today's Communication / Plan
-
Continue Eliquis therapy
Reviewed pathophysiology of thromboembolic disease at length
Reviewed limitations
Doppler study negative for DVT
Suspect lifelong anticoagulation
Follow-up with pulmonary in 3 months, information left in chart
All questions answered
Assessment
-
Assessment: 68-year-old female former tobacco smoker with a past medical history of PE (March 2021) on prophylactic Eliquis, anemia, glaucoma and former tobacco use disorder who presents with elective right total hip arthroplasty. Patient has
been having worsening right hip pain and she underwent right total hip arthroplasty by Dr. Mcfadden on 05/04/2023 with a EBL 50 mL and no immediate complications. She has been managed on the floor postoperatively. The patient was exhibiting
recurrent orthostasis with lightheadedness upon standing, and a CTA chest was ordered showing bilateral lower lobe pulmonary embolism with RV strain. Pulmonary now consulted for additional management/recommendations.
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
Impression:
#Submassive PE with RV strain & high risk features
#lactic acidosis - due to above
#Hx of PE (03/2021)
#Right hip pain s/p right BANDAR (POD#2)
#Hx of GERD
#Hx of anemia
#Obesity
Plan:
At this time, patient appears to be objectively and subjectively improved
Denies any shortness of breath, chest pain
Has mild lightheadedness, but this improves with ongoing physical therapy
Tolerating oral anticoagulation
Bilateral Doppler study negative for DVT
Moving forward
Continue with anticoagulation. Patient with history of thromboembolic disease. Likely will require lifelong anticoagulation
Reviewed what limitations she will have over the next few weeks. Avoid heavy lifting, frequent bending over, straining
Continue physical therapy per orthopedic protocol
I reviewed with her and her family clinical ramifications of thromboembolic disease
Per discussion with Dr. Julian: I suspect patient had this PE pre-operatively as she told me she has been having occasional SOB last few weeks, but she is not the best historian in regards to her SOB history. She did have a 'cold' last month
with SOB, but then her SOB recovered afterwards. --> she will likely be ion life-long anticoagulation considering this is her 2nd PE and appears to be unprovoked. Hypercoagulable workup per heme
Disposition efforts noted
Data:
CTA Chest 05-05-2023:
There is right lower lobe pulmonary embolism
There is right heart strain with an RV/LV ratio of 1.35
CTA Chest 03-25-2021:
1. � ACUTE PULMONARY ARTERIAL EMBOLIC DISEASE in both lungs.
2. � Mild pulmonary arterial hypertension.
3. � No CTA evidence for right heart strain.
4. � Mild subpleural airspace consolidation in the right lower lobe which could be (1) acute pulmonary infarct, (2) pneumonia, or (3) subsegmental atelectasis.
5. � Small right pleural effusion.
6. � 2.1 mm right upper lobe pulmonary nodule. If the patient is considered high risk, a follow-up chest CT examination in 12 months is recommended.
7. � Small hiatal hernia.
TTE 05-05-2023:
1.� Technically difficult study.
�2.� Normal left ventricular size and hyperdynamic LV systolic function without
�regional wall motion abnormalities.� Estimated left ventricular ejection
�fraction is 65 to 70% by visual estimation.� Mild concentric left ventricular
�hypertrophy.
�3.� RV is not well-visualized but grossly normal size and systolic function.
�4.� No significant valvular abnormalities.
�5.� No pericardial effusion.
TTE 04-15-2023:
�Normal left ventricular size, wall thickness and systolic function.� No
�regional wall motion abnormalities are seen. Estimated ejection fraction is 55-
�60%. Normal diastolic function.
�Mild aortic regurgitation.
�When compared to prior echocardiogram from March 26, 2021 there is no
�significant change
Subjective Data
-
Date of Service:
Date of Service: May 07, 2023
Chief Complaint: Pulmonary Follow Up
Subjective:
Overall, patient feels well. Denies chest pain, shortness of breath. She does admit to some mild lightheadedness with positional changes, but she feels this is getting better. She is sitting in a chair. Family is at the bedside. She denies any
bleeding issues
Objective Data
Data Reviewed
Vital Signs / I&O / Oxygen:
Vital Signs
Temp Pulse Resp BP Pulse Ox
98.0 F 64 18 133/54 97
05/07/23 08:43 05/07/23 08:43 05/07/23 08:43 05/07/23 08:43 05/07/23 08:43
Intake and Output
05/06/23 05/07/23 05/08/23
06:59 06:59 06:59
Intake Total 900 / 900 1400 / 1400
Output Total 350 / 350 600 / 600
Balance 550 / 550 800 / 800
SaO2 97
Nasal Cannula flow liters per 2
minute
Physical Exam
General: Comfortable
HEENT: Normocephalic and Anicteric
Cardiovascular: S1-S2 and Peripheral Edema (neg)
Respiratory: Clear, Wheeze (neg), Crackles (neg) and Rhonchi (neg)
GI: Soft, Non Distended, Non Tender and Normal Bowel Sounds
Neurology: Awake and Alert
Skin: Warm, Dry and Other (cast/immobilizer on RLE, no edema)
Labs/Micro/Reports
Lab Data
05/07/23 05:31
05/05/23 16:02
Laboratory Results
05/06/23 05/07/23
13:40 12:23
PT 13.6
INR 1.04
APTT 88.7 H
[2023-05-08 23:49] LABS: Beta-2-Glycoprotein I Ab. IgA <10 SAU (<=20); Beta-2-Glycoprotein I Ab. IgG <10 SGU (<=20); Beta-2-Glycoprotein I Ab. IgM <10 SMU (<=20)
[2023-05-09 09:53] LABS: Cardiolipin IgA Antibody <10 APL (<=11); Cardiolipin IgM Antibody <10 MPL (<=12); Cardiolipin Igg Antibody <10 GPL (<=14)
[2023-05-10 03:37] LABS: Phosphatidylserine Ab, IgA 0 APS (0-19); Phosphatidylserine Ab, IgG 2 GPS (0-15); Phosphatidylserine Ab, IgM 4 MPS (0-21)
== END 2023-05-07 14:16 | disposition home or self-care (01) | DRG 469 ==
LOC: 2 SOUTH 06:23
PROVIDERS: Nurse Practitioner Family; ADMITTING PHYSICIAN Specialist; CONSULT PHYSICIAN Internal Medicine Critical Care Medicine; FAMILY PHYSICIAN Family Medicine; OTHER PHYSICIAN Internal Medicine Hematology & Oncology
PROC: 0SR903A Replacement of Right Hip Joint with Ceramic Synthetic Substitute, Uncemented, Open Approach (ICD-10-PCS; 2023-05-04)
DX: M16.11 Unilateral primary osteoarthritis, right hip (principal); I26.99 Other pulmonary embolism without acute cor pulmonale; E87.20 Acidosis, unspecified; Z68.33 Body mass index [BMI] 33.0-33.9, adult; E66.9 Obesity, unspecified; I10 Essential (primary) hypertension; D64.9 Anemia, unspecified; K21.9 Gastro-esophageal reflux disease without esophagitis; R91.1 Solitary pulmonary nodule; Z87.891 Personal history of nicotine dependence; Z86.711 Personal history of pulmonary embolism; Z79.01 Long term (current) use of anticoagulants; H40.9 Unspecified glaucoma; Z96.642 Presence of left artificial hip joint; I95.9 Hypotension, unspecified
CPT/HCPCS: 93308; 36415; 71275; 73502; 80053; 83036; 83605; 83735; 83880; 84100; 84484; 85025; 85027; 85379; 85610; 85730; 86146; 86147; 86148; 87070; 93321; 93325; 93970; 97110; 97116; 97163; 97167; 97530; 97535; C1713; C1776; Q9967

== ENCOUNTER → 2023-05-29 12:55 | Outpatient (REF) | payer MEDICARE, OTHER, SELFPAY ==
[2023-05-29 14:45] LABS: % Basophils 0.4 % (0-2); % Eosinophils 1.4 % (0-6); % Immature Granulocytes 0.4 % (0-0.5); % Lymphocytes 29.3 % (20.5-51.1); % Monocytes 7.7 % (1.7-9.3); % Neutrophils 60.8 % (42.2-75.2); Absolute Eosinophils 0.1 10^3/uL (0-0.7); Absolute Lymphocytes 1.4 10^3/uL (1.2-3.4); Absolute Monocytes 0.4 10^3/uL (0.1-0.6); Hematocrit 32.4 % (37.0-47.0); Hemoglobin 10.3 g/dL (12.0-16.0); Mean Corp Hgb Conc. 31.8 g/dL (33.0-37.0); Mean Corpuscular Volume 91.3 fL (81.0-99.0); Mean Platelet Volume 10.2 fL (7.4-10.4); Nucleated Red Blood Cells % 0 %; Platelet Count 315 10^3/uL (130-400); Red Blood Cell Count 3.55 10^6/uL (4.20-5.40); Red Cell Dist. Width 13.1 % (11.5-14.5); White Blood Cell Count 4.9 10^3/uL (4.8-10.8)
[2023-05-29 14:51] LABS: Iron 52 ug/dl (37-170)
[2023-05-29 15:00] LABS: Percent Saturation 17 % (20-50); Total Iron Binding Capacity 290 ug/dl (265-497)
[2023-06-03 16:56] LABS: Factor V Leiden Negative; Factor V Leiden Specimen Whole Blood
[2023-06-04 15:00] LABS: PT (F2) G20210A Variant Negative; Pt Gene Variant-PCR Specimen Whole Blood
== END ==
LOC: HWLAB 12:55
PROVIDERS: ATTENDING PHYSICIAN Internal Medicine Hematology & Oncology
DX: Z86.711 Personal history of pulmonary embolism (principal); Z01.818 Encounter for other preprocedural examination; M16.11 Unilateral primary osteoarthritis, right hip; D64.9 Anemia, unspecified; I82.91 Chronic embolism and thrombosis of unspecified vein
CPT/HCPCS: 36415; 81240; 81241; 82728; 83540; 83550; 85025

== ENCOUNTER → 2023-07-17 12:59 | Outpatient (REF) | payer MEDICARE, OTHER, SELFPAY ==
[2023-07-17 15:48] LABS: % Basophils 0.3 % (0-2); % Eosinophils 0.5 % (0-6); % Immature Granulocytes 0.3 % (0-0.5); % Lymphocytes 28.2 % (20.5-51.1); % Monocytes 5.3 % (1.7-9.3); % Neutrophils 65.4 % (42.2-75.2); Absolute Lymphocytes 1.9 10^3/uL (1.2-3.4); Absolute Monocytes 0.4 10^3/uL (0.1-0.6); Absolute Neutrophils 4.3 10^3/uL (1.4-6.5); Hemoglobin 11.7 g/dL (12.0-16.0); Mean Corp Hgb Conc. 35.5 g/dL (33.0-37.0); Mean Corpuscular Hgb 31.5 pg (27.0-31.0); Mean Corpuscular Volume 88.9 fL (81.0-99.0); Mean Platelet Volume 11.2 fL (7.4-10.4); Nucleated Red Blood Cells % 0 %; Platelet Count 214 10^3/uL (130-400); Red Blood Cell Count 3.71 10^6/uL (4.20-5.40); Red Cell Dist. Width 13.1 % (11.5-14.5); White Blood Cell Count 6.6 10^3/uL (4.8-10.8)
[2023-07-17 15:53] LABS: Erythrocyte Sed Rate 45 mm/hour (0-20)
[2023-07-17 16:02] LABS: Iron 58 ug/dl (37-170)
[2023-07-17 16:11] LABS: Percent Saturation 21 % (20-50); Total Iron Binding Capacity 273 ug/dl (265-497)
[2023-07-17 16:34] LABS: TSH Reflex To Free T4 0.55 uIU/ml (0.47-4.68)
[2023-07-17 16:38] LABS: Ferritin 57.3 ng/ml (11.1-264.0)
[2023-07-17 17:10] LABS: Folate 17.6 ng/ml (2.76-20); Vitamin B12 463 pg/ml (239-931)
== END ==
LOC: HWLAB 12:59
PROVIDERS: ATTENDING PHYSICIAN Internal Medicine Hematology & Oncology; FAMILY PHYSICIAN Family Medicine
DX: Z86.711 Personal history of pulmonary embolism (principal); Z01.818 Encounter for other preprocedural examination; M16.11 Unilateral primary osteoarthritis, right hip; I82.91 Chronic embolism and thrombosis of unspecified vein; R79.9 Abnormal finding of blood chemistry, unspecified; I26.09 Other pulmonary embolism with acute cor pulmonale; D51.9 Vitamin B12 deficiency anemia, unspecified; I10 Essential (primary) hypertension
CPT/HCPCS: 36415; 82607; 82728; 82746; 83540; 83550; 84443; 85025; 85652

== ENCOUNTER 2023-07-29 17:25 | Observation (INO) | payer MEDICARE, OTHER, SELFPAY ==
[2023-07-29] VITALS (11 sets, daily range): BP systolic 98–147; BP diastolic 42–85; PULSE 71–82; BMI 33.0
[2023-07-29 11:26] LABS: % Basophils 0.4 % (0-2); % Eosinophils 0.6 % (0-6); % Immature Granulocytes 0.4 % (0-0.5); % Lymphocytes 18.3 % (20.5-51.1); % Neutrophils 74.3 % (42.2-75.2); Absolute Eosinophils 0.1 10^3/uL (0-0.7); Absolute Lymphocytes 1.5 10^3/uL (1.2-3.4); Absolute Monocytes 0.5 10^3/uL (0.1-0.6); Absolute Neutrophils 6.2 10^3/uL (1.4-6.5); Hematocrit 35.4 % (37.0-47.0); Hemoglobin 11.6 g/dL (12.0-16.0); Mean Corp Hgb Conc. 32.8 g/dL (33.0-37.0); Mean Corpuscular Hgb 28.9 pg (27.0-31.0); Mean Corpuscular Volume 88.1 fL (81.0-99.0); Mean Platelet Volume 9.9 fL (7.4-10.4); Nucleated Red Blood Cells % 0 %; Platelet Count 255 10^3/uL (130-400); Red Blood Cell Count 4.02 10^6/uL (4.20-5.40); Red Cell Dist. Width 12.9 % (11.5-14.5); White Blood Cell Count 8.4 10^3/uL (4.8-10.8)
[2023-07-29 11:54] LABS: NT-proBNP 312 pg/ml; Troponin I < 0.012 ng/ml
--- NOTE | 2023-07-29 13:00 | EDRN ---
per the provider Daxa Ayala, the pt was ambulated around the unit to check if the pts Sp02 would drop, the pts Sp02 dropped from 100% to 95% and the pt was SOB, when this RN and the pt got back to the pts room the pt had to sit down and catch
her breath, this RN notified the provider
--- NOTE | 2023-07-29 13:24 | ED.GENMED ---
History of Present Illness
<Daxa Ayala PA-C - Last Filed: 07/29/23 16:41>
General
Chief Complaint: Cardiac Symptoms
Source: patient
Exam Limitations: none
Time Seen by Provider: 07/29/23 11:05
Nursing documentation reviewed up to this point in time: agreed with
Travel History
Have you had any contact with someone who has COVID-19?: No
Do you have any symptoms of coronavirus? Fever > 100 degrees, chills, cough, shortness of breath, sore throat, loss of taste or smell, muscle aches, or headache?: No
History of Present Illness
History of Present Illness:
pt is a 68 y/o F with h/o PE on eliquis
here for 6+ weeks of PHAM, cough
pt asys that she has had lightheadedness and some degree of dyspnea since her PE after her hip surgery in apr 2023
pt had righ theart strain and R sided lower lobe PE
this was the 2nd PE she has had and now she is on chronic anticoagulation
pt has had fatigue and feeling run down since her discharge, has seen her PCP and her [facility] consultant since admission and was told this was just related to her surgery
pt says that she noticed more PHAM over the past 6 weeks. she has been to her PCP who did give her cefuroxime and pt did not tolerate after a few doses due to diarrhea so she stopped it. she went [facility] last week and got RX for zpak
she started having more cough
Past History
<Daxa Ayala PA-C - Last Filed: 07/29/23 16:41>
Past History
ED Past Medical History: Other (PE, Glucoma)
ED Past Surgical History: Appendectomy and Cholecystectomy
Social History
Tobacco: Former smoker
Alcohol: Occasional
Drug: None
Personal:
Living: alone
Phy Exam
<TORO Duggan Last Filed: 07/29/23 16:41>
Physical Exam
Physical Exam:
GENERAL: Alert , in no apparent distress
EYE: pupils equal and reactive
NECK: Supple
ENT: b/l TM s clear, pharynx erythematous but no tonsillar hypertrophy or exudates
CARDIAC: Regular rate and rhythm, no edema
Chest wall: Left rib mild tenderness to palpation, some splinting
LUNGS: Speaking in full sentences no acute respiratory distress, rales left lower lobe, pleuritic pain with mild splinting
ABDOMEN: Soft, without focal tenderness, no r/g, no cvat, normal bowel sounds
NEUROLOGICAL: Alert and oriented, no focal neuro deficits
SKIN: Warm and dry, skin intact.
MUSCULOSKELETAL: No edema, well perfused.
PSYCH: Normal and appropriate interaction.
Course
<Daxa Ayala PA-C - Last Filed: 07/29/23 16:41>
Orders/Labs/Results
Orders:
Orders
07/29/23 10:42
ECG [Electrocardiogram (*1)] Urgent
Reason for Study: Shortness of Breath
07/29/23 10:43
EKG- Treatment ONCE
07/29/23 11:18
Complete Blood Count/With Diff Urgent
Pro-BNP [NT-proBNP] Urgent
Troponin I Urgent
07/29/23 11:44
CR Chest - 2 Views Urgent
Comment:
Reason For Exam: concern for pna vs. chf
CR Ribs-left 2 Vw No Pa Chest Urgent
Reason For Exam: left anterior rib pain with cough x 6 weeks
07/29/23 13:39
Amoxicillin 875 mg/Clav 125 mg [Augmentin 875 mg/125 mg] 1 tablet PO NOW STA
07/29/23 14:46
Piperacillin/Tazo 3.375 Gram [Zosyn] 3.375 gram in 50 ml IV NOW
07/29/23 17:14
Code Status As Directed
Resuscitation Status: Full Code
Cetirizine HCl [Zyrtec] 10 mg PO NOW STA
Orthostatic Vital Signs As Directed
Orthostatic VS Frequency: Now
07/29/23 17:15
0.9% Sodium Chloride 1000 ml [Nss] 1,000 ml IV 80 mls/hr
07/29/23 17:36
CMP [Comprehensive Metabolic Panel] Stat
Procalcitonin Stat
PCT Algorithmm Indication: Respiratory
07/30/23 08:00
Cetirizine HCl [Zyrtec] 10 mg PO DAILY
Abnormal Lab Results
07/29/23
11:18
RBC 4.02 L 10^6/uL
(4.20-5.40)
Hgb 11.6 L g/dL
(12.0-16.0)
Hct 35.4 L %
(37.0-47.0)
MCHC 32.8 L g/dL
(33.0-37.0)
Lymphocytes % 18.3 L %
(20.5-51.1)
07/29/23 11:18
07/29/23 11:48
Vital Signs
Pulse: 77
Blood pressure: 133/78
Initial and Last Documented VS:
Initial Vital Signs
Temp Pulse Resp BP Pulse Ox
98.2 F 72 18 133/51 100
07/29/23 10:43 07/29/23 10:43 07/29/23 10:43 07/29/23 10:43 07/29/23 10:43
Last Documented Vital Signs
Temp Pulse Resp BP Pulse Ox
98.1 F 73 16 129/42 99
07/29/23 18:04 07/29/23 18:04 07/29/23 18:04 07/29/23 18:04 07/29/23 18:04
<Beltran Miller PA-C - Last Filed: 07/29/23 18:46>
Orders/Labs/Results
Orders:
Orders
07/29/23 10:42
ECG [Electrocardiogram (*1)] Urgent
Reason for Study: Shortness of Breath
07/29/23 10:43
EKG- Treatment ONCE
07/29/23 11:18
Complete Blood Count/With Diff Urgent
Pro-BNP [NT-proBNP] Urgent
Troponin I Urgent
07/29/23 11:44
CR Chest - 2 Views Urgent
Comment:
Reason For Exam: concern for pna vs. chf
CR Ribs-left 2 Vw No Pa Chest Urgent
Reason For Exam: left anterior rib pain with cough x 6 weeks
07/29/23 13:39
Amoxicillin 875 mg/Clav 125 mg [Augmentin 875 mg/125 mg] 1 tablet PO NOW STA
07/29/23 14:46
Piperacillin/Tazo 3.375 Gram [Zosyn] 3.375 gram in 50 ml IV NOW
07/29/23 17:14
Code Status As Directed
Resuscitation Status: Full Code
Cetirizine HCl [Zyrtec] 10 mg PO NOW STA
Orthostatic Vital Signs As Directed
Orthostatic VS Frequency: Now
07/29/23 17:15
0.9% Sodium Chloride 1000 ml [Nss] 1,000 ml IV 80 mls/hr
07/29/23 17:36
CMP [Comprehensive Metabolic Panel] Stat
Procalcitonin Stat
PCT Algorithmm Indication: Respiratory
07/30/23 08:00
Cetirizine HCl [Zyrtec] 10 mg PO DAILY
Abnormal Lab Results
07/29/23
11:18
RBC 4.02 L 10^6/uL
(4.20-5.40)
Hgb 11.6 L g/dL
(12.0-16.0)
Hct 35.4 L %
(37.0-47.0)
MCHC 32.8 L g/dL
(33.0-37.0)
Lymphocytes % 18.3 L %
(20.5-51.1)
07/29/23 11:18
07/29/23 11:48
Vital Signs
Initial and Last Documented VS:
Initial Vital Signs
Temp Pulse Resp BP Pulse Ox
98.2 F 72 18 133/51 100
07/29/23 10:43 07/29/23 10:43 07/29/23 10:43 07/29/23 10:43 07/29/23 10:43
Last Documented Vital Signs
Temp Pulse Resp BP Pulse Ox
98.1 F 73 16 129/42 99
07/29/23 18:04 07/29/23 18:04 07/29/23 18:04 07/29/23 18:04 07/29/23 18:04
<Daxa Ayala PA-C - Last Filed: 07/29/23 16:41>
MDM/Problems Addressed
Differential Diagnosis Includes:
Pneumonia, pleural effusion
MDM/Problems Addressed:
68-year-old female presents for pleuritic left-sided chest pain over the last few weeks worsening with some dyspnea on exertion which has been chronic since a PE diagnosis in April. She is on Eliquis and does not miss any doses. On exam she is
comfortable at rest, not hypoxic, not tachypneic but she does have some splinting with deep breathing and does have some tenderness to the ribs anteriorly.
Patient's chest x-ray independently reviewed by me with a small left pleural effusion and patchy pneumonia in the left upper lobe. Blood work is pretty reassuring.
Initially we were contemplating having the patient go home, gave her the option to stay and the patient seem to be comfortable going home, we did a road test which the patient failed. She got very lightheaded when standing and she does drop her
blood pressure from 146 lying systolic to 130 standing and was quite symptomatic with lightheadedness, on the road test she was very tachypneic and fatigued and had to stop and rest. BNP is normal. Troponin negative. Will admit for IV antibiotics
and likely pulmonary consult
<Daxa Ayala PA-C - Last Filed: 07/29/23 16:41>
*Critical Care Note
Total Time (30-74mins, 75-104mins- exclusive of procedures): Not Applicable
<Beltran Miller PA-C - Last Filed: 07/29/23 18:46>
Update Note
Update Note:
07/29/2023 1839 PM: Patient requesting to go home. I discussed this with Emely Ayala PA-C as well as hospitalist Dr. Galindo, admit orders will be changed to discharge and consultation to will be written by hospitalist. After discussion with Emely Ayala
will place the patient on 1 week of Augmentin twice daily. This was given as a written RX as I could not enter d/c orders
ED Attending Note
<Daxa Ayala PA-C - Last Filed: 07/29/23 16:41>
-
Portions of this chart may have been created with voice recognition software.� Occasional wrong word or��sound alike� substitutions may have occurred due to the inherent limitations of voice recognition software.
Discharge Plan
Departure
Patient Disposition: Home (Routine Discharge)
Date of Disposition: 07/29/23
Time of Disposition: 14:40
Admit to: Med/Surg
Patient with high blood pressure during this ER visit?: No
Condition: Fair
Covid-19: Not Applicable
Discharge Problem:
Pleural effusion, Pneumonia, PHAM (dyspnea on exertion)
Interventions
Interventions:
*Risk Screen - Suicide Last Done: 07/29/23 11:20
*General Assessment Last Done: 07/29/23 11:20
*Neglect/Abuse Screening Last Done: 07/29/23 11:20
ED- Fall Risk Assessment Last Done: 07/29/23 11:20
*ED COVID-19 Vaccine History Last Done: 07/29/23 10:43
ED- Pulmonary Assessment Last Done: 07/29/23 11:20
ED- Cardiac Assessment Last Done: 07/29/23 11:20
[2023-07-29] MEDS: ZOSYN 50 IV (14:58)
--- NOTE | 2023-07-29 16:26 | HPS.HSE ---
Addendum entered and electronically signed by Raffy Galindo MD 07/29/23 18:40:
Notified by nursing staff that patient wants to go home, and will be discharged by the ER provider.
Addendum entered and electronically signed by Raffy Galindo MD 07/29/23 18:38:
Changed to a consult note.
Procalcitonin negative.
No orthostatic hypotension documented,
Supine 136/71 HR 82
Sitting 128/81 HR 76
Standing 115/85 HR 71
Suspect she had lightheadedness with walking due to dehydration.
No IV fluids were ordered in the ER.
IV fluids were ordered by the medicine team.
However, patient now wishes to go home, will cancel observation order status, defer to the ED physician to discharge.
Addendum entered and electronically signed by Raffy Galindo MD 07/29/23 17:46:
68-year-old female with a past medical history of recent PE in May 2023 on Eliquis, recent hip arthroplasty in April 2023, bilateral PE in 2020, hypertension, gastroesophageal reflux disease, anemia, and obesity presents with worsening
fatigue, lightheadedness, shortness of breath with walking. Patient reports that she has been having dyspnea with activity since her PE, states it is about the same or worse since May. She has recently been treated with antibiotics for a sinus
infection, continues to have a cough. The main reason she came to the ER today is left-sided pleuritic chest pain underneath her left breast, that is worse with coughing, sneezing, twisting, moving, touching. This pain started 2 days ago. This
pain and her cough is keeping her from sleep.
She is afebrile, there is no leukocytosis.
Chest x-ray shows small left pleural effusion, patchy airspace disease in the left lower lobe which may be atelectasis. No evidence of rib fracture.
Suspect she has a viral bronchitis with dehydration.
Check COVID, influenza, procalcitonin, CMP.
Check orthostatics, give IV fluids, consult PT.
She has left sided musculoskeletal chest pain from coughing.
Give Tylenol 1 g 3 times daily, lidocaine patch, oxycodone as needed.
Observe overnight.
I have personally seen and examined the patient, and agree with the plan of care as documented by JILLIAN Burrows
Advance care planning discussed, patient is a full code.
All other issues as outlined by the advanced care practitioner.
Total time spent to see the patient on the floor, examine the patient, review data and lab results, discuss treatment plan with patient, nursing staff around 75 minutes.
Addendum entered and electronically signed by JILLIAN Burrows 07/29/23 17:35:
Patient reports had NEG nuclear stress test and hematology eval for preop clearance April 2023 for hip arthroplasty
Original Note:
Family Physician
-
Family Physician: Salma Linton MD
Chief Complaint
-
Cough with wheeze, chronic dyspnea on exertion, chronic fatigue, sinus congestion
History of Present Illness
68-year-old female complaining of chronic dyspnea on exertion with fatigue over the past 6 weeks since her surgery in April for her right hip arthroplasty. She did develop a pulmonary embolism right lower lobe with right heart strain this was her
second PE she was placed on oral chronic anticoagulation. She reports she saw her PCP who placed her on cefuroxime she did not tolerate after a few doses due to diarrhea she then went back last week and got a prescription for Z-Dion for sinus
congestion where she was blowing green nasal discharge. She was using Flonase occasionally and an albuterol nebulizer. She still reports some sinus tenderness in the temporal area but states clear nasal drainage today. She had outpatient lab work
with hematology with normal iron, B12, TSH levels. Her other past medical history includes bilateral PE 2020 glaucoma, RBBB, former smoker, GERD, HTN, anemia, OA, obesity, pulmonary nodule.
Medical History
Past Medical History
Past Medical History: Reports Other
Additional Past Medical History:
Provoked PE April 2023 status post right hip arthroplasty
bilateral PE 2020
glaucoma
former smoker
GERD
HTN
anemia
OA
obesity
pulmonary nodule.
Past Surgical History: Reports Other
Additional Past Surgical History:
Right total hip arthroplasty April 2023
Appendectomy
Cholecystectomy
Cataract extraction
Left total hip arthroplasty
Right knee replacement [place] with revision [facility]
Social History
Tobacco: Former Smoker (7 years 1 pack a day quit age 23)
Alcohol: Occasional
Personal: Single
Living: Alone
Employment: Retired
Family History
Family History: Other (Father COPD asbestosis age 69, mother age 84 CHF, sister pulmonary HTN, primary biliary cirrhosis age 56, sister currently history of sarcoidosis living)
Allergies / Home Medications
Allergies reflects when Allergies were last updated in [employer].
Home Medications with original date entered in [employer]
Allergy/Medication List:
Allergies
Allergy/AdvReac Type Severity Reaction Status Date / Time
No Known Allergies Allergy Verified 07/29/23 10:44
Home Medications
latanoprost 0.005 % eye drops 1 drp RIGHT EYE HS Eye condition 03/25/21
apixaban 5 mg tablet (Eliquis) 5 mg PO BID PE #60 tabs 05/07/23
acetaminophen 500 mg tablet 1,000 mg PO QIDPRN PRN mild pain 07/29/23
Review of Systems
-
History Source: Patient
A 12 point ROS was completed and negative except as noted: Yes
Constitutional: Reports Fatigue (Chronic); Denies Fever or Chills
EENT: Reports Runny Nose (Was green now clear) and Other (Postnasal drip); Denies Sore Throat
Respiratory: Reports Cough (With wheeze) and Trouble Breathing (PHAM)
Cardiac: Denies Chest Pain, Diaphoresis or Palpitations
Abdomen/GI: Denies Abdominal Pain, Nausea, Vomiting, Diarrhea, Constipated, Bloody Stools or Black Stools
: Denies Dysuria, Frequency, Flank Pain, Incontinence, Difficulty Voiding, Urgency or Bleeding
Musculoskeletal: Denies Joint Pain or Edema
Skin: Denies Itching or Rash
Neurological: Reports Headache; Denies Dizzy or Weakness
Endocrine: Reports No Symptoms
Hematologic/Lymphatic: Reports No Symptoms
Psych: Reports Calm
Physical Exam
Vital Signs
Vital Signs
Temp Pulse Resp BP Pulse Ox
97.5 F 75 16 146/60 99
07/29/23 14:49 07/29/23 15:45 07/29/23 14:49 07/29/23 15:00 07/29/23 15:45
Physical Exam
General: Comfortable and Conversant; No Pain, Fever or Chills
HEENT: NormoCephalic, Anicteric, PERRLA, [place] Conjunctivae, No Ptosis, Neck Nontender and Other (Nares clear drainage, mild erythema of turbinates. Sinus point tenderness frontal/temporal area); No Pharyngeal Efythema
Respiratory: Clear; No Wheezes, Rales or Rhonchi
Cardiac: S1/S2 and Regular Rhythm; No Murmur, Rub, Gallop or Peripheral Edema
Breast: Deferred by me
GI: Soft, Non Tender, Non Distended, Normal Bowel Sounds and No Hepatosplenomegaly
Rectal: Deferred by Provider
Genito-urinary: Deferred by me
Musculoskeletal: No Clubbing, No Cyanosis and No Edema
Skin: Warm and Dry; No Rash
Neuro: AO x 3, No Motor Deficits, Nonfocal/grossly intact, Cranial Nerves Intact and No Sensory Deficits; No Slurred Speech, Facial Droop or Tremors
Psych: Calm
Laboratory Results
-
07/29/23 11:18
07/29/23 11:48
Laboratory Results
Total Bilirubin Cancelled 07/29/23 11:48
AST Cancelled 07/29/23 11:48
ALT Cancelled 07/29/23 11:48
Alkaline Phosphatase Cancelled 07/29/23 11:48
Troponin I < 0.012 ng/ml 07/29/23 11:18
Data Reviewed
-
Diagnostic Radiology: Report Reviewed by me
Lab Data: Labs Reviewed by me
Impression/Plan
-
Impression/plan:
Observation MedSurg
#Dyspnea with activity/ persistent cough
#Pleuritic left rib pain secondary to cough
-Completed 5 days of cefuroxime did not tolerate due to diarrhea, completed Z-Dion last week
99% RA
- check procal
-incentive spirometry
- start zyrtec , cont flonase for sinus congestion
- lidocaine over rib area of pain
- cont albuterol prn wheezing
- tylenol prn pain
CXR: Small left pleural effusion. Patchy airspace disease left lower lobe may be atelectasis. no evidence of rib fracture
EKG: NSR, RBBB, 75 bpm, QTc 455 MS no significant change from April 06, 2021
# Orthostatic hypotension reported /HTN-benign
146/60
check orhtostatic vitals
-No current meds
-Iv fluids
#Chronic fatigue
Outpatient labs 07/17/2023 by hematology normal
Iron 58, TIBC 273, % sat 21, ferritin 57.3
B12 463, folate 17.6, TSH 0.55
#Hx provoked PE status post arthroplasty April 2023
#Hx bilateral pulmonary embolism 2020
-Patient is on chronic oral Eliquis
2D echo 05/05/2023: EF 65 to 70%, mild LVH, no wall abnormalities
#Right total hip arthroplasty April [address] Mcfadden
OA-right knee replacement, left hip replacement
-Continue Tylenol 4 times daily as needed
#Hx COVID 2020 then 2021
-Chronic loss of taste and smell
#GERD
-No current meds
#Anemia normocytic
-Hgb 11.6, MCV 88.1
#Glaucoma
#Former smoker
#Known pulmonary nodule
Obesity due to excess calorie consumption�BMI 33 EKG
-Weight loss recommended, low-fat diet
DVT prophylaxis
Continue [employer] Eliquis 5 mg twice daily
Full code
--- NOTE | 2023-07-29 17:15 | EDRN ---
still awaiting admission orders
--- NOTE | 2023-07-29 17:41 | EDRN ---
orthostatic vital signs obtained, blood drawn and sent to lab
--- NOTE | 2023-07-29 17:43 | EDRN ---
the pt was told by Dr. Hsieh that she would be admitted under observation services, the pt stated to this RN that if she is not changed to a regular admission that she would like to be discharged home
[2023-07-29 17:58] LABS: ALT (SGPT) 19 U/L (0-35); AST (SGOT) 26 U/L (14-36); Albumin 3.6 g/dl (3.5-5.0); Alkaline Phosphatase 73 U/L (38-126); Blood Urea Nitrogen 12 mg/dl (7-17); Calcium 9.5 mg/dl (8.4-10.2); Carbon Dioxide 26 mmol/L (22-30); Chloride 107 mmol/L (98-107); Estimated Creatinine Clearance 100 ml/min; Glucose 100 mg/dl (70-99); Sodium 137 mmol/L (135-145); Total Bilirubin 0.4 mg/dl (0.2-1.3); Total Protein 6.9 g/dl (6.3-8.2); eGFR > 60.00
--- NOTE | 2023-07-29 18:07 | EDRN ---
the pt stated to this RN that she does not want to be admitted and wants to go home, this RN notified Dr. Hsieh
[2023-07-29 18:24] LABS: COVID-19 Antigen Negative (Negative)
[2023-07-29 18:24] LABS: Procalcitonin < 0.05 ng/ml (0.0-0.25)
--- NOTE | 2023-07-29 18:32 | EDRN ---
the pts procalcitonin results and chemistry came back, and per Dr. Hsieh the pt will be admitted under observation services, this RN notified the provider that the pt would like to go home instead of staying in the hospital since the provider told
the pt that she would be observation services, awaiting to hear back from Dr. Hsieh
--- NOTE | 2023-07-29 18:39 | W.PN.UPDATE ---
Update Note
Progress Note Update
For billing purposes
--- NOTE | 2023-07-29 18:45 | EDRN ---
Dr. Hsieh was spoken to about the pt wanting to go home and Dr. Hsieh discontinued admission orders, Kushal Miller and Dr. Hercules were notified about the pt needing to be discharged
--- NOTE | 2023-07-29 18:54 | EDRN ---
discharge instructions and script for ABX was given to the pt
== END 2023-07-29 19:36 | disposition home or self-care (01) ==
LOC: ED 17:25
PROVIDERS: ADMITTING PHYSICIAN Family Medicine; EMERGENCY PHYSICIAN Emergency Medicine; FAMILY PHYSICIAN Family Medicine
DX: R05.9 Cough, unspecified (principal); R06.09 Other forms of dyspnea; R42 Dizziness and giddiness; R53.83 Other fatigue; J90 Pleural effusion, not elsewhere classified; I11.0 Hypertensive heart disease with heart failure; K21.9 Gastro-esophageal reflux disease without esophagitis; D64.9 Anemia, unspecified; E66.09 Other obesity due to excess calories; R53.82 Chronic fatigue, unspecified; R09.81 Nasal congestion; R43.9 Unspecified disturbances of smell and taste; R06.2 Wheezing; I45.10 Unspecified right bundle-branch block; R91.1 Solitary pulmonary nodule; I95.1 Orthostatic hypotension; Z86.16 Personal history of COVID-19; Z86.711 Personal history of pulmonary embolism; Z79.01 Long term (current) use of anticoagulants; Z87.891 Personal history of nicotine dependence; H40.9 Unspecified glaucoma; Z68.33 Body mass index [BMI] 33.0-33.9, adult; Z96.643 Presence of artificial hip joint, bilateral; Z11.52 Encounter for screening for COVID-19
CPT/HCPCS: 71046; 71100; 80053; 83880; 84145; 84484; 85025; 87502; 87811; 93005; 96365; 99285; G0378

== ENCOUNTER → 2023-08-03 11:30 | Outpatient (REF) | payer MEDICARE, OTHER, SELFPAY | LOC: HWRAD 11:30 | PROVIDERS: ATTENDING PHYSICIAN Family Medicine | DX: R05.3 Chronic cough (principal) | CPT/HCPCS: 71046 ==

== ENCOUNTER → 2023-09-14 10:10 | Outpatient (REF) | payer MEDICARE, OTHER, SELFPAY | LOC: HWRAD 10:10 | PROVIDERS: ATTENDING PHYSICIAN Internal Medicine Critical Care Medicine; FAMILY PHYSICIAN Family Medicine | DX: R93.89 Abnormal findings on diagnostic imaging of other specified body structures (principal) | CPT/HCPCS: 71250 ==

== ENCOUNTER → 2023-10-16 07:55 | Outpatient (REF) | payer MEDICARE, OTHER, SELFPAY ==
[2023-10-16 10:07] LABS: % Basophils 0.5 % (0-2); % Eosinophils 1.3 % (0-6); % Immature Granulocytes 0.2 % (0-0.5); % Lymphocytes 23.5 % (20.5-51.1); % Monocytes 5.3 % (1.7-9.3); % Neutrophils 69.2 % (42.2-75.2); Absolute Eosinophils 0.1 10^3/uL (0-0.7); Absolute Lymphocytes 1.4 10^3/uL (1.2-3.4); Absolute Monocytes 0.3 10^3/uL (0.1-0.6); Absolute Neutrophils 4.2 10^3/uL (1.4-6.5); Hemoglobin 11.8 g/dL (12.0-16.0); Mean Corp Hgb Conc. 34.7 g/dL (33.0-37.0); Mean Corpuscular Hgb 31.6 pg (27.0-31.0); Mean Corpuscular Volume 90.9 fL (81.0-99.0); Nucleated Red Blood Cells % 0 %; Platelet Count 189 10^3/uL (130-400); Red Blood Cell Count 3.74 10^6/uL (4.20-5.40); Red Cell Dist. Width 13.6 % (11.5-14.5)
[2023-10-16 10:22] LABS: ALT (SGPT) 15 U/L (0-35); AST (SGOT) 25 U/L (14-36); Albumin 3.9 g/dl (3.5-5.0); Alkaline Phosphatase 69 U/L (38-126); Blood Urea Nitrogen 14 mg/dl (7-17); Carbon Dioxide 25 mmol/L (22-30); Chloride 107 mmol/L (98-107); Glucose 85 mg/dl (70-99); HDL Cholesterol 64 mg/dl; LDL Cholesterol, Calculated 77 mg/dl; Potassium 4.5 mmol/L (3.5-5.1); Sodium 140 mmol/L (135-145); Total Bilirubin 0.7 mg/dl (0.2-1.3); Total Cholesterol 153 mg/dl (50-199); Total Protein 6.9 g/dl (6.3-8.2); Triglyceride 62 mg/dl (10-149); Very Low Density Lipoprotein 12 mg/dl (0-30); eGFR > 60.00
[2023-10-16 10:50] LABS: TSH Reflex To Free T4 1.66 uIU/ml (0.47-4.68)
== END ==
LOC: HWLAB 07:55
PROVIDERS: ATTENDING PHYSICIAN Family Medicine
DX: R79.9 Abnormal finding of blood chemistry, unspecified (principal); D64.9 Anemia, unspecified; R53.83 Other fatigue; E66.9 Obesity, unspecified
CPT/HCPCS: 36415; 80053; 80061; 84443; 85025

== ENCOUNTER → 2023-12-22 10:43 | Outpatient (REF) | payer MEDICARE, OTHER, SELFPAY ==
[2023-12-22 15:57] LABS: % Basophils 0.5 % (0-2); % Eosinophils 0.5 % (0-6); % Immature Granulocytes 0.3 % (0-0.5); % Lymphocytes 22.2 % (20.5-51.1); % Monocytes 6.1 % (1.7-9.3); % Neutrophils 70.4 % (42.2-75.2); Absolute Lymphocytes 1.4 10^3/uL (1.2-3.4); Absolute Monocytes 0.4 10^3/uL (0.1-0.6); Absolute Neutrophils 4.5 10^3/uL (1.4-6.5); Hematocrit 33.6 % (37.0-47.0); Hemoglobin 11.9 g/dL (12.0-16.0); Mean Corp Hgb Conc. 35.4 g/dL (33.0-37.0); Mean Corpuscular Hgb 32.1 pg (27.0-31.0); Mean Corpuscular Volume 90.6 fL (81.0-99.0); Mean Platelet Volume 10.8 fL (7.4-10.4); Nucleated Red Blood Cells % 0 %; Platelet Count 232 10^3/uL (130-400); Red Blood Cell Count 3.71 10^6/uL (4.20-5.40); White Blood Cell Count 6.4 10^3/uL (4.8-10.8)
[2023-12-22 16:02] LABS: ALT (SGPT) 19 U/L (0-35); AST (SGOT) 23 U/L (14-36); Alkaline Phosphatase 80 U/L (38-126); Blood Urea Nitrogen 14 mg/dl (7-17); Calcium 9.7 mg/dl (8.4-10.2); Carbon Dioxide 24 mmol/L (22-30); Chloride 104 mmol/L (98-107); Glucose 99 mg/dl (70-99); Sodium 141 mmol/L (135-145); Total Bilirubin 0.5 mg/dl (0.2-1.3); Total Protein 7.2 g/dl (6.3-8.2); eGFR > 60.00
[2023-12-22 16:07] LABS: C-Reactive Protein < 5.00 mg/L (0.0-10.00)
[2023-12-22 16:22] LABS: Erythrocyte Sed Rate 36 mm/hour (0-20)
[2023-12-22 16:37] LABS: TSH 1.64 uIU/ml (0.47-4.68)
[2023-12-23 23:23] LABS: Complement C3 126 mg/dl (88-165)
[2023-12-25 07:46] LABS: ANA, IgG Reflex to HEp-2 Detected (None Detected)
== END ==
LOC: HWWDC 10:43
PROVIDERS: ATTENDING PHYSICIAN Family Medicine; REFERRING PHYSICIAN Internal Medicine
DX: Z78.0 Asymptomatic menopausal state (principal); Z12.31 Encounter for screening mammogram for malignant neoplasm of breast; L29.9 Pruritus, unspecified; L50.1 Idiopathic urticaria; H10.45 Other chronic allergic conjunctivitis
CPT/HCPCS: 36415; 77063; 77067; 77080; 80053; 82785; 84443; 85025; 85652; 86003; 86038; 86140; 86160

== ENCOUNTER → 2024-07-29 10:12 | Outpatient (REF) | payer MEDICARE, OTHER, SELFPAY ==
[2024-07-29 16:26] LABS: % Basophils 0.6 % (0-2); % Eosinophils 0.6 % (0-6); % Immature Granulocytes 0.2 % (0-0.5); % Lymphocytes 28.9 % (20.5-51.1); % Monocytes 6.2 % (1.7-9.3); % Neutrophils 63.5 % (42.2-75.2); Absolute Lymphocytes 1.9 10^3/uL (1.2-3.4); Absolute Monocytes 0.4 10^3/uL (0.1-0.6); Absolute Neutrophils 4.1 10^3/uL (1.4-6.5); Hematocrit 34.8 % (37.0-47.0); Hemoglobin 11.9 g/dL (12.0-16.0); Mean Corp Hgb Conc. 34.2 g/dL (33.0-37.0); Mean Corpuscular Hgb 32.1 pg (27.0-31.0); Mean Corpuscular Volume 93.8 fL (81.0-99.0); Mean Platelet Volume 11.6 fL (7.4-10.4); Nucleated Red Blood Cells % 0 %; Platelet Count 212 10^3/uL (130-400); Red Blood Cell Count 3.71 10^6/uL (4.20-5.40); Red Cell Dist. Width 13.1 % (11.5-14.5); White Blood Cell Count 6.4 10^3/uL (4.8-10.8)
[2024-07-29 16:37] LABS: ALT (SGPT) 16 U/L (0-35); AST (SGOT) 23 U/L (14-36); Albumin 3.8 g/dl (3.5-5.0); Alkaline Phosphatase 63 U/L (38-126); Blood Urea Nitrogen 12 mg/dl (7-17); Calcium 9.3 mg/dl (8.4-10.2); Carbon Dioxide 27 mmol/L (22-30); Chloride 104 mmol/L (98-107); Glucose 96 mg/dl (70-99); Potassium 4.9 mmol/L (3.5-5.1); Sodium 138 mmol/L (135-145); Total Bilirubin 0.5 mg/dl (0.2-1.3); Total Protein 7.1 g/dl (6.3-8.2); eGFR > 60.00
== END ==
LOC: HWRAD 10:12
PROVIDERS: ATTENDING PHYSICIAN Nurse Practitioner Adult Health
DX: R10.2 Pelvic and perineal pain (principal); D64.9 Anemia, unspecified
CPT/HCPCS: 36415; 76830; 76856; 80053; 85025

== ENCOUNTER → 2024-09-29 12:28 | Outpatient (REF) | payer MEDICARE, OTHER, SELFPAY ==
[2024-09-29 16:28] LABS: % Basophils 0.4 % (0-2); % Eosinophils 0.4 % (0-6); % Immature Granulocytes 0.5 % (0-0.5); % Lymphocytes 23.5 % (20.5-51.1); % Monocytes 4.6 % (1.7-9.3); % Neutrophils 70.6 % (42.2-75.2); Absolute Lymphocytes 1.9 10^3/uL (1.2-3.4); Absolute Monocytes 0.4 10^3/uL (0.1-0.6); Absolute Neutrophils 5.8 10^3/uL (1.4-6.5); Hematocrit 33.7 % (37.0-47.0); Hemoglobin 11.7 g/dL (12.0-16.0); Mean Corp Hgb Conc. 34.7 g/dL (33.0-37.0); Mean Corpuscular Volume 94.9 fL (81.0-99.0); Mean Platelet Volume 11.4 fL (7.4-10.4); Nucleated Red Blood Cells % 0 %; Platelet Count 217 10^3/uL (130-400); Red Blood Cell Count 3.55 10^6/uL (4.20-5.40); Red Cell Dist. Width 13.1 % (11.5-14.5); White Blood Cell Count 8.2 10^3/uL (4.8-10.8)
[2024-09-29 16:32] LABS: ALT (SGPT) 24 U/L (0-35); AST (SGOT) 21 U/L (14-36); Albumin 3.8 g/dl (3.5-5.0); Alkaline Phosphatase 58 U/L (38-126); Blood Urea Nitrogen 13 mg/dl (7-17); Calcium 8.8 mg/dl (8.4-10.2); Carbon Dioxide 25 mmol/L (22-30); Chloride 108 mmol/L (98-107); Glucose 102 mg/dl (70-99); Potassium 3.9 mmol/L (3.5-5.1); Sodium 140 mmol/L (135-145); Total Bilirubin 0.5 mg/dl (0.2-1.3); Total Protein 6.9 g/dl (6.3-8.2); eGFR > 60.00
[2024-09-29 16:51] LABS: Erythrocyte Sed Rate 34 mm/hour (0-20)
[2024-09-29 17:02] LABS: TSH 0.98 uIU/ml (0.47-4.68)
[2024-09-30 14:23] LABS: Syphilis/T. pallidum Ab Reflex Negative (Negative)
== END ==
LOC: PAVMRI 12:28
PROVIDERS: ATTENDING PHYSICIAN Physician Assistant; FAMILY PHYSICIAN Family Medicine
DX: H90.A31 Mixed conductive and sensorineural hearing loss, unilateral, right ear with restricted hearing on the contralateral side (principal); R06.09 Other forms of dyspnea
CPT/HCPCS: 36415; 70553; 80053; 84436; 84443; 85025; 85652; 86618; 86780; A9575

== ENCOUNTER 2024-12-12 17:18 | Emergency (ER) | payer MEDICARE, OTHER, SELFPAY ==
[2024-12-12 17:28] VITALS: BP 137/51
[2024-12-12 17:46] LABS: Hematocrit 35.7 % (37.0-47.0); Hemoglobin 11.8 g/dL (12.0-16.0); Mean Corp Hgb Conc. 33.1 g/dL (33.0-37.0); Mean Corpuscular Volume 88.1 fL (81.0-99.0); Nucleated Red Blood Cells % 0 %; Platelet Count 254 10^3/uL (130-400); Red Cell Dist. Width 12.3 % (11.5-14.5)
[2024-12-12 18:21] LABS: ALT (SGPT) 24 U/L (0-35); AST (SGOT) 23 U/L (14-36); Albumin 4.0 g/dl (3.5-5.0); Alkaline Phosphatase 51 U/L (38-126); Blood Urea Nitrogen 14 mg/dl (7-17); Calcium 9.4 mg/dl (8.4-10.2); Carbon Dioxide 26 mmol/L (22-30); Chloride 107 mmol/L (98-107); Glucose 106 mg/dl (70-99); Potassium 4.2 mmol/L (3.5-5.1); Sodium 140 mmol/L (135-145); Total Protein 7.3 g/dl (6.3-8.2); eGFR > 60.00
[2024-12-12 20:26] VITALS: BP 172/67
[2024-12-12 20:27] VITALS: BMI 32.6
[2024-12-12 21:00] VITALS: BP 166/54
--- NOTE | 2024-12-12 22:00 | ED.GENMED ---
History of Present Illness
General
Chief Complaint: Dizziness
Source: patient
Time Seen by Provider: 12/12/24 21:45
History of Present Illness
History of Present Illness:
15-year-old female presents to the emergency room complaining of having hives, itchiness all over her body feeling a bit dizzy. Patient has been experiencing itching for the past several days. Been taking Maria D as well as Benadryl. Patient
developed redness and itchiness on her trunk and face prompting her to take Benadryl earlier today. Symptoms improved after taking Benadryl. No shortness of breath. Currently patient planing of mild dizziness and itching. Rashes not present any
longer.
Past History
Past History
ED Past Medical History: Other (PE, Glucoma)
ED Past Surgical History: Appendectomy and Cholecystectomy
Social History
Tobacco: Former smoker
Alcohol: Occasional
Drug: None
Personal:
Living: alone
Phy Exam
Physical Exam
Physical Exam:
General: Awake, Alert, Oriented X3. No acute distress.
Vitals: unremarkable
Head: Atraumatic
Eyes: Pupils equal, EOMI
Throat: Airway intact, no exudates
Neck: Trachea midline
Lungs: Clear and equal b/l
Heart: Regular rate, no murmurs
Abd: Soft, Nontender, No pulsatile mass
Neuro: Nonfocal
Skin: Warm, dry, no rash
Extremities: pulses equal b/l, no edema
Course
Orders/Labs/Results
Orders:
Orders
12/12/24 17:32
Electrocardiogram (*1) Urgent
Reason for Study: Vertigo / Dizzy
EKG- Treatment ONCE
12/12/24 17:41
Complete Blood Count/With Diff Urgent
Comprehensive Metabolic Panel Urgent
12/12/24 22:00
Acetaminophen [Tylenol] 1,000 mg PO NOW STA
Abnormal Lab Results
12/12/24
17:41
RBC 4.05 L 10^6/uL
(4.20-5.40)
Hgb 11.8 L g/dL
(12.0-16.0)
Hct 35.7 L %
(37.0-47.0)
Glucose 106 H mg/dl
(70-99)
12/12/24 17:41
12/12/24 17:41
Vital Signs
Initial and Last Documented VS:
Initial Vital Signs
Temp Pulse Resp BP Pulse Ox
99.1 F 69 18 137/51 100
12/12/24 17:28 12/12/24 17:28 12/12/24 17:28 12/12/24 17:28 12/12/24 17:28
Last Documented Vital Signs
Temp Pulse Resp BP Pulse Ox
99.1 F 66 19 166/54 99
12/12/24 17:28 12/12/24 22:00 12/12/24 22:00 12/12/24 21:00 12/12/24 22:01
MDM/Problems Addressed
Differential Diagnosis Includes:
Dehydration, medication side effect, spontaneous hives
MDM/Problems Addressed:
Patient presents feeling dizzy and itchy. Labs here do not show any acute abnormality. Physical exam is benign. Patient stable for discharge home and outpatient follow-up has had an director data management that she has been seeing for her symptoms.
*Pulse Oximetry
SaO2: 99
Oxygen Mode of Delivery: Room air
Patient hypoxic: no
*EKG
Heart Rate: 64
Rate: normal
Rhythm: sinus
QRS Pattern: right bundle branch block
Ischemia: no ischemia
*Shrimp Peeling Machine Operator Interpretation
Rate: normal
Interpretation: normal
Rhythm: sinus
*Critical Care Note
Total Time (30-74mins, 75-104mins- exclusive of procedures): Not Applicable
ED Attending Note
-
Portions of this chart may have been created with voice recognition software.� Occasional wrong word or��sound alike� substitutions may have occurred due to the inherent limitations of voice recognition software.
Discharge Plan
Departure
Patient Disposition: Home (Routine Discharge)
Date of Disposition: 12/12/24
Time of Disposition: 22:07
Patient with high blood pressure during this ER visit?: No
Condition: Good
Discharge Problem:
Dizziness, Hives
Instructions: Hives (DC), Dizziness
Prescriptions:
No Action
latanoprost 1 DROP drops
1 drp RIGHT EYE HS
Eliquis 5 mg tablet
5 mg PO BID Qty: 60 0RF
acetaminophen 500 mg tablet
1,000 mg PO QIDPRN PRN (Reason: mild pain)
Flonase
1 spray intranasal BID
albuterol
90 mcg inhalation Q4H PRN (Reason: wheezing )
Referrals:
Salma Linton MD [Family Provider, Family Practice]
Interventions
Interventions:
*Risk Screen - Suicide Last Done: 12/12/24 17:28
*General Assessment Last Done: 12/12/24 17:31
*Neglect/Abuse Screening Last Done: 12/12/24 17:31
*ED- Fall Risk Assessment Last Done: 12/12/24 20:27
*ED COVID-19 Vaccine History Last Done: 12/12/24 20:27
*Nursing Disposition Last Done: 12/12/24 22:19
ED-Skin Assessment Last Done: 12/12/24 20:27
ED- Pulmonary Assessment Last Done: 12/12/24 20:27
ED- Neurological Assessment Last Done: 12/12/24 20:27
ED- Cardiac Assessment Last Done: 12/12/24 20:27
ED Swallowing Screen Last Done: 12/12/24 20:31
Discharge Date and Time
Discharge Date/Time: 12/12/24 22:20
Print Language: LUXEMBOURGER
[2024-12-12] MEDS: TYLENOL 1000 MG PO (22:06)
== END 2024-12-12 22:20 | disposition home or self-care (01) ==
LOC: EMR 17:18
PROVIDERS: Emergency Medicine; EMERGENCY PHYSICIAN Emergency Medicine; FAMILY PHYSICIAN Family Medicine
DX: R42 Dizziness and giddiness (principal); L50.9 Urticaria, unspecified; I45.10 Unspecified right bundle-branch block; H40.9 Unspecified glaucoma; Z79.01 Long term (current) use of anticoagulants; Z86.711 Personal history of pulmonary embolism; Z87.891 Personal history of nicotine dependence
CPT/HCPCS: 99284; 80053; 85025; 93005

== ENCOUNTER → 2024-12-15 07:52 | Outpatient (REF) | payer MEDICARE, OTHER, SELFPAY ==
[2024-12-15 11:05] LABS: HDL Cholesterol 58 mg/dl; LDL Cholesterol, Calculated 98 mg/dl; Very Low Density Lipoprotein 17 mg/dl (0-30)
== END ==
LOC: HWLAB 07:52
PROVIDERS: ATTENDING PHYSICIAN Family Medicine
DX: E66.9 Obesity, unspecified (principal); D64.9 Anemia, unspecified; I10 Essential (primary) hypertension
CPT/HCPCS: 36415; 80061; 84443

== ENCOUNTER → 2025-02-20 12:15 | Outpatient (REF) | payer MEDICARE, OTHER, SELFPAY | LOC: HWWDC 12:15 | PROVIDERS: ATTENDING PHYSICIAN Family Medicine | DX: Z12.13 Encounter for screening for malignant neoplasm of small intestine (principal) | CPT/HCPCS: 77063; 77067 ==

== ENCOUNTER → 2025-03-06 09:52 | Outpatient (REF) | payer MEDICARE, OTHER, SELFPAY | LOC: HWRAD 09:52 | PROVIDERS: ATTENDING PHYSICIAN Nurse Practitioner Adult Health; FAMILY PHYSICIAN Family Medicine | DX: N85.9 Noninflammatory disorder of uterus, unspecified (principal) | CPT/HCPCS: 76830; 76856 ==